=== PATIENT | female | born 1995 ===

== ENCOUNTER → 2020-02-27 13:08 | Outpatient (BNVA) | payer MEDICAID, SELFPAY | PROVIDERS: Visit Provider Advanced Practice Midwife | DX: Z34.90 Encounter for supervision of normal pregnancy, unspecified, unspecified trimester (principal) | CPT/HCPCS: 99212 ==

== ENCOUNTER 2020-03-03 22:42 | Emergency (ER) | payer MEDICAID, SELFPAY ==
[2020-03-03 22:44] VITALS: BP 138/84; PULSE 95; RESP 16; TEMP 36.6; O2SAT 98; BMI 21.2
--- NOTE | 2020-03-03 23:01 | ED.PREGNANCY ---
HPI - General Chief complaint: Abdominal Pain Stated complaint: cramping Time Seen by Provider: 03/03/20 22:48 Source: patient Mode of arrival: ambulatory History of Present Illness HPI Narrative: 24-year-old female, , with last normal menstrual period end of November, however patient is irregular, states of suprapubic cramping radiating to her back x 1-2 days, without vaginal bleeding without dysuria. Denies nausea vomiting. Patient states found not last week no care at this point. Denies chest pain or shortness of breath. Denies dizziness or weakness MD Complaint: abdominal pain Location: pelvis Severity: moderate Quality: Cramping Related Data Home Medications Medication Instructions Recorded Confirmed No Known Home Meds 02/27/20 02/27/20 Allergies Allergy/AdvReac Type Severity Reaction Status Date / Time No Known Allergies Allergy Verified 02/27/20 13:38 Review of Systems Review of Systems: Constitutional : No Weight loss, No Fever, No Chills, No Night Sweats, No Fatigue, No Malaise ENT/Mouth : No Hearing loss, No Ear Pain, No Nasal Congestion, No Sinus Pain, No Hoarseness, No sore throat, No Rhinorrhea, No Swallowing Difficulty Eyes: No Eye Pain, No Swelling, No Redness, No Foreign Body, No Discharge, No Vision Changes Cardiovascular : No Chest Pain, No SOB, No Dyspnea on Exertion, No Orthopnea, No Edema, No Palpitations Respiratory : No Cough, No Sputum, No Wheezing, No Smoke Exposure, No Dyspnea Gastrointestinal : No Nausea, No Vomiting, No Diarrhea, No Constipation, positive abdominal Pain, No Hematochezia, No Melena Genitourinary : no irregular bleeding, No Dysuria, No Urinary Frequency, No Hematuria, No Urinary Incontinence, No Urgency, No Flank Pain, No Urinary Flow Changes, No Hesitancy Musculoskeletal : No joint pain, No Myalgias, No Joint Swelling Skin : No Skin Lesions, No rash Neuro : No Weakness, No Numbness, No Paresthesias, No Loss of Consciousness, No Dizziness, No Headache Psych : No Anxiety/Panic, No Depression, No SI/HI/AH/VH, No Social Issues, Heme/Lymph: No Bruising, No Bleeding,No Lymphadenopathy Endocrine : No Polyuria, No Polydipsia, No Temperature Intolerance [facility] Past Medical History Medical History (Updated 03/04/20 @ 03:01 by Paresh Drummond DO) Irregular menses Family History Family History (Updated 03/03/20 @ 23:03 by Paresh Drummond DO) Other Family history non-contributory Social History Social History Alcohol intake: never Smoking Status: Never smoker Advance Directives: No Advance Directives Information Provided: No Gender identity: female Physical Exam Vital Signs: Vital Signs: Last Vital Signs Temp 97.6 F 03/04/20 02:00 Pulse 79 03/04/20 02:00 Resp 18 03/04/20 02:00 BP 105/69 03/04/20 02:00 Pulse Ox 99 03/04/20 02:00 Body Mass Index 21.2 Appearance: Alert. Oriented X3. No acute distress. Eyes: Pupils equal, round and reactive to light. ENT: Pharynx normal. Neck: Normal inspection. Neck supple. No lymph nodes noted. No crepitus CVS: Normal heart rate and rhythm. Pulses normal. Normal S1 and S2 Respiratory: No respiratory distress. Breath sounds normal. No Wheezing. No rales Abdomen: Soft and mild suprapubic tender. No rigidity. No distention. good BS x4 Skin: Skin warm and dry. Normal skin color. Normal skin turgor. Ob- pelvic exam deferred Extremities: No lower extremity edema. Neurovascular intact to all extremities. No Lacerations. No Rash Neuro: Oriented X 3. No motor deficit. No sensory deficit. Moving all extermities. No slurred speech. Course Course Course Narrative: Patient has been waiting patiently in room in no distress on phone sitting up. However there has been a problem with the lab in which they say they have a computer problem which has prolonged her HCG results. Because of that we we have had to prolong her ultrasound which patient does not want to wait in the emergency department any more. I discussed with the patient of the risk of leaving especially with my differential diagnosis of ectopic and patient understands she needs to return if getting worse. Patient will sign out against medical advice and I did discuss with her she can get worse and can without a definitive diagnosis MDM - OB/Uterine Contractions Lab Data Result diagrams: 03/03/20 23:00 03/03/20 00:07 Labs: Lab Results 11/03/03/20 03/03/20 Range/Units 00:07 23:00 23:48 WBC 6.8 (4.8-10.8) X10*3/uL RBC 3.92 L (4.20-5.50) X10*6/uL Hgb 10.8 L (12.0-16.0) g/dl Hct 31.6 L (37-47) % MCV 80.6 (80-98) fL MCH 27.6 (27.0-33.0) pg MCHC 34.2 (31.0-35.0) g/dl RDW 12.4 (11.0-16.0) % Plt Count 220 (160-400) X10*3/uL MPV 10.3 (9.4-12.3) fL Immature Gran % (Auto) 0.3 (0.0-0.4) % Neut % (Auto) 51.8 (45-73) % Lymph % (Auto) 37.2 (20-40) % [place] % (Auto) 8.5 (2-11) % Eos % (Auto) 1.5 (0-4) % Baso % (Auto) 0.7 (0-2) % Lymph # (Auto) 2.5 (1.2-4.9) X10*3/uL [place] # (Auto) 0.6 (0.1-1.2) X10*3/uL Eos # (Auto) 0.1 (0.0-0.4) X10*3/uL Baso # (Auto) 0.1 (0.0-0.2) X10*3/uL Abs Immat Gran (auto) 0.02 (0.00-0.03) X10*3/uL Absolute Neuts (auto) 3.5 (2.0-8.3) X10*3/uL Absolute Nucleated RBC 0.000 (0.0-0.012) X10*3/uL Nucleated RBC % (auto) 0.0 (0.0-0.2) /100WBC Sodium 137 (135-145) mmol/L Potassium 3.9 (3.3-5.1) mmol/l Chloride 107 (96-108) mmol/L Carbon Dioxide 22 (22-29) mmol/L Anion Gap 12 (12-20) BUN 8 L (9-16) mg/dL Creatinine 0.68 (0.5-1.4) mg/dL Estim Creat Clear Calc 112.0 Estimated GFR > 60 Random Glucose 73 (60-115) mg/dL Calcium 8.5 (8.4-10.2) mg/dL Beta HCG, Quant 1762 mIU/mL Urine Color YELLOW Urine Appearance CLEAR Urine pH 6.0 (5.0-8.0) Ur Specific [place] 1.025 (1.005-1.025) Urine Protein NEG (NEG-TRACE) MG/DL Urine Glucose (UA) NEG (NEG) MG/DL Urine Ketones NEG (NEG) MG/DL Urine Blood NEG (NEG) Urine Nitrite NEG (NEG) Ur Leukocyte Esterase NEG (NEG) Blood Type 03/04/20 Range/Units 00:07 WBC (4.8-10.8) X10*3/uL RBC (4.20-5.50) X10*6/uL Hgb (12.0-16.0) g/dl Hct (37-47) % MCV (80-98) fL MCH (27.0-33.0) pg MCHC (31.0-35.0) g/dl RDW (11.0-16.0) % Plt Count (160-400) X10*3/uL MPV (9.4-12.3) fL Immature Gran % (Auto) (0.0-0.4) % Neut % (Auto) (45-73) % Lymph % (Auto) (20-40) % [place] % (Auto) (2-11) % Eos % (Auto) (0-4) % Baso % (Auto) (0-2) % Lymph # (Auto) (1.2-4.9) X10*3/uL [place] # (Auto) (0.1-1.2) X10*3/uL Eos # (Auto) (0.0-0.4) X10*3/uL Baso # (Auto) (0.0-0.2) X10*3/uL Abs Immat Gran (auto) (0.00-0.03) X10*3/uL Absolute Neuts (auto) (2.0-8.3) X10*3/uL Absolute Nucleated RBC (0.0-0.012) X10*3/uL Nucleated RBC % (auto) (0.0-0.2) /100WBC Sodium (135-145) mmol/L Potassium (3.3-5.1) mmol/l Chloride (96-108) mmol/L Carbon Dioxide (22-29) mmol/L Anion Gap (12-20) BUN (9-16) mg/dL Creatinine (0.5-1.4) mg/dL Estim Creat Clear Calc Estimated GFR Random Glucose (60-115) mg/dL Calcium (8.4-10.2) mg/dL Beta HCG, Quant mIU/mL Urine Color Urine Appearance Urine pH (5.0-8.0) Ur Specific [place] (1.005-1.025) Urine Protein (NEG-TRACE) MG/DL Urine Glucose (UA) (NEG) MG/DL Urine Ketones (NEG) MG/DL Urine Blood (NEG) Urine Nitrite (NEG) Ur Leukocyte Esterase (NEG) Blood Type O Positive Discharge Plan Discharge Clinical Impression: Qualifiers: Weeks of gestation: less than 8 weeks Qualified Code(s): Z3A.01 - Less than 8 weeks gestation of Abdominal pain Qualifiers: Abdominal location: lower abdomen, unspecified Qualified Code(s): R10.30 - Lower abdominal pain, unspecified Patient Disposition: Home, Self-Care Instructions: Ectopic (DC), (ED) Additional Instructions: Thank you for visiting the emergency department today. If your symptoms worsen or do not resolve completely please return to the emergency department immediately or call 911. If you have any questions please call your primary care physician Prescriptions: No Action No Known Home Meds RF: 0 Referrals: [facility] [Provider Group] - 2 days
[2020-03-04] VITALS: BP 101/57; PULSE 90; RESP 16; TEMP 36.3; O2SAT 99
[2020-03-04 00:31] LABS: Basophils Absolute Auto 0.1 X10*3/uL (0.0-0.2); Basophils Percent Auto 0.7 % (0-2); Eosinophils Absolute Auto 0.1 X10*3/uL (0.0-0.4); Eosinophils Percent Auto 1.5 % (0-4); Hematocrit 31.6 % (37-47); Hemoglobin 10.8 g/dl (12.0-16.0); Imm Gran Abs Auto 0.02 X10*3/uL (0.00-0.03); Imm Gran Pct Auto 0.3 % (0.0-0.4); Lymphocytes Absolute Auto 2.5 X10*3/uL (1.2-4.9); Lymphocytes Percent Auto 37.2 % (20-40); MANUAL DIFF FLAG NO; Mean Corpuscular HGB Conc 34.2 g/dl (31.0-35.0); Mean Corpuscular Hemoglobin 27.6 pg (27.0-33.0); Mean Corpuscular Volume 80.6 fL (80-98); Mean Platelet Volume 10.3 fL (9.4-12.3); Monocytes Absolute Auto 0.6 X10*3/uL (0.1-1.2); Monocytes Percent Auto 8.5 % (2-11); Neutrophils Absolute Auto 3.5 X10*3/uL (2.0-8.3); Neutrophils Percent Auto 51.8 % (45-73); Platelet Count 220 X10*3/uL (160-400); Red Blood Count 3.92 X10*6/uL (4.20-5.50); Red Cell Distribution Width 12.4 % (11.0-16.0); White Blood Count 6.8 X10*3/uL (4.8-10.8)
[2020-03-04 00:32] LABS: Glucose Urine UA NEG (NEG); Leukocyte Esterase Urine NEG (NEG); Nitrite Urine NEG (NEG); Specific Gravity - Urine 1.025 (1.005-1.025); Urine Blood NEG (NEG); Urine Ketones NEG (NEG); Urine Protein NEG (NEG-TRACE)
[2020-03-04 00:36] LABS: Appearance Urine CLEAR; Color Urine YELLOW; UACC Culture Trigger NO
[2020-03-04 02:00] VITALS: BP 105/69; PULSE 79; RESP 18; TEMP 36.4; O2SAT 99
[2020-03-04 02:37] LABS: Anion Gap 12 (12-20); Blood Urea Nitrogen 8 mg/dL (9-16); Calcium 8.5 mg/dL (8.4-10.2); Carbon Dioxide 22 mmol/L (22-29); Chloride 107 mmol/L (96-108); Estimated Glomerular Filt Rate > 60; Glucose Random 73 mg/dL (60-115); Potassium 3.9 mmol/l (3.3-5.1); Sodium 137 mmol/L (135-145)
[2020-03-04 02:44] LABS: HCG Quantitative 1762 mIU/mL
== END 2020-03-04 03:05 | disposition home or self-care (01) ==
PROVIDERS: Emergency Provider Emergency Medicine
DX: O26.91 Pregnancy related conditions, unspecified, first trimester (principal); R10.30 Lower abdominal pain, unspecified; Z3A.08 8 weeks gestation of pregnancy
CPT/HCPCS: 36415; 80048; 81003; 84702; 85025; 86900; 86901; 96360; 99283; 99284

== ENCOUNTER 2020-03-05 11:17 | Emergency (ER) | payer MEDICAID, SELFPAY ==
[2020-03-05 12:00] VITALS: BP 104/62; PULSE 81; RESP 18; TEMP 36.7; O2SAT 100
[2020-03-05 12:25] VITALS: BP 102/64; PULSE 81; RESP 18; TEMP 36.7; O2SAT 100; BMI 21.2
--- NOTE | 2020-03-05 12:39 | US_ITS ---
EXAMINATION: US OBSTETRICAL ULTRASOUND CLINICAL INFORMATION: Early . Lower abdominal and pelvic pain and cramping radiating to back. COMPARISON: None. LMP: Uncertain. TECHNIQUE: Ultrasound of the maternal pelvis is performed using transabdominal and transvaginal transducers. Transvaginal imaging is performed due to inadequate visualization transabdominally. M-mode Doppler is also performed. FINDINGS: There is a small intrauterine gestational sac with double decidual sac sign. Average sac dimension is only 0.5 cm corresponding to a of 5 weeks 0 days. No visible yolk sac or embryonic this time. No subchorionic hemorrhage or hematoma. MATERNAL ADNEXA: Both ovaries are visualized. There is normal color flow to both adnexa. No torsion. No pelvic ascites. The right maternal ovary measures 3.3 x 2.9 x 3.0 cm. There is a dominant follicle versus small follicular cysts in the right ovary measuring 2.8 x 2.3 x 2.3 cm. No hypervascularity around the simple cyst. The left maternal ovary measures 2.3 x 1.5 x 2.3 cm. No left adnexal mass. US/US OB transvaginal IMPRESSION: 1. Early intrauterine gestational sac with average sac dimension only 0.5 cm (5 weeks 0 days). 2. No visible yolk sac or embryo at this time. 3. Simple right maternal ovarian cyst 2.8 x 2.3 cm. No maternal pelvic ascites. No torsion.
--- NOTE | 2020-03-05 12:41 | ED.ABDPAIN ---
HPI - Abdominal Pain General Chief Complaint: Abdominal Pain Stated Complaint: abd pain Time Seen by Provider: 03/05/20 12:34 Source: patient Mode of arrival: ambulatory History of Present Illness HPI narrative: 24-year-old female presenting to ED with continued lower abdominal cramping radiating to back x 4 days. LMP end of November. Denies fever, chills, vaginal bleeding, vaginal discharge, dysuria/hematuria, vomiting MD elicited complaint: abdominal pain Related Data Home Medications Medication Instructions Recorded Confirmed No Known Home Meds 02/27/20 02/27/20 Allergies Allergy/AdvReac Type Severity Reaction Status Date / Time No Known Allergies Allergy Verified 02/27/20 13:38 Review of Systems Review of Systems Constitutional: No Fever, No Malaise Gastrointestinal: + Nausea, No Vomiting,+Abdominal pain Genitourinary: No irregular bleeding, No Dysuria, No Urinary Frequency, No Hematuria, No Flank Pain Musculoskeletal: No joint pain, No Myalgias, No Joint Swelling Skin: No Skin Lesions, No rash Yes all other systems are reviewed and are negative Physical Exam Vital Signs: Vital Signs: Last Vital Signs Temp 97.6 F 03/05/20 14:00 Pulse 89 03/05/20 14:00 Resp 18 03/05/20 14:00 BP 105/60 03/05/20 14:00 Pulse Ox 100 03/05/20 12:25 Body Mass Index 21.2 Const: General: cooperative and healthy appearing Orientation/consciousness: patient oriented x3 Limitations: no limitations HENMT: Head: Yes normal to inspection Ears: hearing grossly normal bilaterally General nose exam: Normal external nose present Face and sinus: Yes normal facial exam Eyes: General: appearance normal, both eyes and all related structures EOM: EOMs intact bilaterally Neck: Neck: Yes normal visual inspection Resp: Effort & Inspection: normal respiratory effort GI: Inspection: Yes normal to inspection Palpation (GI): Soft to palpation, Tenderness to palpation present (GI) suprapubicly, no guarding and not rigid : Other: Pelvic exam deferred General: Yes no CVA tenderness Back/Spine/Pelvis: Back: no CVA tenderness Skin: Rashes: no rashes Wounds: no wounds Neuro: General: patient oriented x3 Gait exam (Neuro): Normal gait present Extrem: General: Yes normal to inspection Course Course Course Narrative: -1354--Labs unremarkable, beta quant 2508 (which coincides with ultrasound dates) -1417--ultrasound showing early intrauterine gestation sac with average sac dimension only 0.5 cm. No visible yolk sac or embryo at this time. Simple right ovarian cyst, no ascites or torsion >> labs/imaging results discussed with patient. She reports has follow-up with ultrasound with her OBGYN next week. UA pending. Worrisome signs and symptoms including worsening/persistent pain, vaginal bleeding, or discharge, patient verbalized understanding feel safe for discharge follow-up with Ob - UA negative MDM - Abdominal Pain MDM Narrative Medical decision making narrative: 24-year-old female presenting to ED with lower abdominal cramping radiating to back x 4 days. On exam VSS, NAD/well-appearing, abdomen soft with mild suprapubic TTP. No rebound or guarding. Concern for ectopic vs normal vs ovarian cyst/torsion. Lower concern for TOA Plan: Labs, UA, pelvic ultrasound Lab Data Result diagrams: 03/05/20 12:49 03/05/20 12:49 Labs: Lab Results 03/05/20 03/05/20 03/05/20 Range/Units 12:49 12:49 12:49 WBC 4.6 L (4.8-10.8) X10*3/uL RBC 4.22 (4.20-5.50) X10*6/uL Hgb 11.4 L (12.0-16.0) g/dl Hct 34.3 L (37-47) % MCV 81.3 (80-98) fL MCH 27.0 (27.0-33.0) pg MCHC 33.2 (31.0-35.0) g/dl RDW 12.5 (11.0-16.0) % Plt Count 190 (160-400) X10*3/uL MPV 10.1 (9.4-12.3) fL Immature Gran % (Auto) 0.2 (0.0-0.4) % Neut % (Auto) 48.4 (45-73) % Lymph % (Auto) 39.7 (20-40) % [place] % (Auto) 8.6 (2-11) % Eos % (Auto) 2.2 (0-4) % Baso % (Auto) 0.9 (0-2) % Lymph # (Auto) 1.8 (1.2-4.9) X10*3/uL [place] # (Auto) 0.4 (0.1-1.2) X10*3/uL Eos # (Auto) 0.1 (0.0-0.4) X10*3/uL Baso # (Auto) 0.0 (0.0-0.2) X10*3/uL Abs Immat Gran (auto) 0.01 (0.00-0.03) X10*3/uL Absolute Neuts (auto) 2.2 (2.0-8.3) X10*3/uL Absolute Nucleated RBC 0.000 (0.0-0.012) X10*3/uL Nucleated RBC % (auto) 0.0 (0.0-0.2) /100WBC Hold Blue Top SEE NOTE Sodium 137 (135-145) mmol/L Potassium 3.8 (3.3-5.1) mmol/l Chloride 106 (96-108) mmol/L Carbon Dioxide 25 (22-29) mmol/L Anion Gap 10 L (12-20) BUN 8 L (9-16) mg/dL Creatinine 0.68 (0.5-1.4) mg/dL Estim Creat Clear Calc 112.0 Estimated GFR > 60 Random Glucose 64 (60-115) mg/dL Calcium 8.6 (8.4-10.2) mg/dL Total Bilirubin (0.0-1.0) mg/dL Direct Bilirubin (0.0-0.5) mg/dL AST (5-31) U/L ALT (0-31) U/L Alkaline Phosphatase (39-117) U/L Total Protein (6.5-8.0) g/dL Albumin (3.5-5.0) g/dL Beta HCG, Quant 2508 mIU/mL Urine Color Urine Appearance Urine pH (5.0-8.0) Ur Specific [place] (1.005-1.025) Urine Protein (NEG-TRACE) MG/DL Urine Glucose (UA) (NEG) MG/DL Urine Ketones (NEG) MG/DL Urine Blood (NEG) Urine Nitrite (NEG) Ur Leukocyte Esterase (NEG) 03/05/20 03/05/20 Range/Units 12:49 14:28 WBC (4.8-10.8) X10*3/uL RBC (4.20-5.50) X10*6/uL Hgb (12.0-16.0) g/dl Hct (37-47) % MCV (80-98) fL MCH (27.0-33.0) pg MCHC (31.0-35.0) g/dl RDW (11.0-16.0) % Plt Count (160-400) X10*3/uL MPV (9.4-12.3) fL Immature Gran % (Auto) (0.0-0.4) % Neut % (Auto) (45-73) % Lymph % (Auto) (20-40) % [place] % (Auto) (2-11) % Eos % (Auto) (0-4) % Baso % (Auto) (0-2) % Lymph # (Auto) (1.2-4.9) X10*3/uL [place] # (Auto) (0.1-1.2) X10*3/uL Eos # (Auto) (0.0-0.4) X10*3/uL Baso # (Auto) (0.0-0.2) X10*3/uL Abs Immat Gran (auto) (0.00-0.03) X10*3/uL Absolute Neuts (auto) (2.0-8.3) X10*3/uL Absolute Nucleated RBC (0.0-0.012) X10*3/uL Nucleated RBC % (auto) (0.0-0.2) /100WBC Hold Blue Top Sodium (135-145) mmol/L Potassium (3.3-5.1) mmol/l Chloride (96-108) mmol/L Carbon Dioxide (22-29) mmol/L Anion Gap (12-20) BUN (9-16) mg/dL Creatinine (0.5-1.4) mg/dL Estim Creat Clear Calc Estimated GFR Random Glucose (60-115) mg/dL Calcium (8.4-10.2) mg/dL Total Bilirubin 0.4 (0.0-1.0) mg/dL Direct Bilirubin 0.2 (0.0-0.5) mg/dL AST 18 (5-31) U/L ALT 8 (0-31) U/L Alkaline Phosphatase 56 (39-117) U/L Total Protein 7.3 (6.5-8.0) g/dL Albumin 4.3 (3.5-5.0) g/dL Beta HCG, Quant mIU/mL Urine Color YELLOW Urine Appearance CLEAR Urine pH 6.5 (5.0-8.0) Ur Specific [place] 1.020 (1.005-1.025) Urine Protein NEG (NEG-TRACE) MG/DL Urine Glucose (UA) NEG (NEG) MG/DL Urine Ketones NEG (NEG) MG/DL Urine Blood NEG (NEG) Urine Nitrite NEG (NEG) Ur Leukocyte Esterase NEG (NEG) Discharge Plan Discharge Clinical Impression: Abdominal pain in Qualifiers: Trimester: first trimester Qualified Code(s): O26.891 - Other specified related conditions, first trimester Patient Disposition: Home, Self-Care Instructions: Abdominal Pain in (ED) Additional Instructions: Your blood work was reassuring today in the ED. Ultrasound showed an early gestational sac It is recommended you have a repeat ultrasound in 1 week Follow-up with her OBGYN If her pain persists or worsens, becomes unbearable, he developed vaginal bleeding, discharge, or are unable to eat or drink return to the ED immediately Prescriptions: No Action No Known Home Meds RF: 0 Referrals: Selena Orellana MD [Physician] - 1 week [facility] Past Medical History Attestation statement: The following information was validated with the patient. Medical History (Updated 03/05/20 @ 14:19 by ROMIE Soni) Irregular menses Family History Family History (Updated 03/03/20 @ 23:03 by Paresh Drummond DO) Other Family history non-contributory Social History Social History Alcohol intake: never Smoking Status: Never smoker Use of substances other than those prescribed or required for medical reasons: No Advance Directives: No Advance Directives Information Provided: No Gender identity: female
--- NOTE | 2020-03-05 12:50 | US_ITS ---
EXAMINATION: US OBSTETRICAL ULTRASOUND CLINICAL INFORMATION: Early . Lower abdominal and pelvic pain and cramping radiating to back. COMPARISON: None. LMP: Uncertain. TECHNIQUE: Ultrasound of the maternal pelvis is performed using transabdominal and transvaginal transducers. Transvaginal imaging is performed due to inadequate visualization transabdominally. M-mode Doppler is also performed. FINDINGS: There is a small intrauterine gestational sac with double decidual sac sign. Average sac dimension is only 0.5 cm corresponding to a of 5 weeks 0 days. No visible yolk sac or embryonic this time. No subchorionic hemorrhage or hematoma. MATERNAL ADNEXA: Both ovaries are visualized. There is normal color flow to both adnexa. No torsion. No pelvic ascites. The right maternal ovary measures 3.3 x 2.9 x 3.0 cm. There is a dominant follicle versus small follicular cysts in the right ovary measuring 2.8 x 2.3 x 2.3 cm. No hypervascularity around the simple cyst. The left maternal ovary measures 2.3 x 1.5 x 2.3 cm. No left adnexal mass. US/US OB <= 14 weeks fetus IMPRESSION: 1. Early intrauterine gestational sac with average sac dimension only 0.5 cm (5 weeks 0 days). 2. No visible yolk sac or embryo at this time. 3. Simple right maternal ovarian cyst 2.8 x 2.3 cm. No maternal pelvic ascites. No torsion.
--- NOTE | 2020-03-05 12:55 | PC.NURSE ---
amb to ultrasound steady gait
[2020-03-05 13:02] LABS: Basophils Percent Auto 0.9 % (0-2); Eosinophils Absolute Auto 0.1 X10*3/uL (0.0-0.4); Eosinophils Percent Auto 2.2 % (0-4); Hematocrit 34.3 % (37-47); Hemoglobin 11.4 g/dl (12.0-16.0); Imm Gran Abs Auto 0.01 X10*3/uL (0.00-0.03); Imm Gran Pct Auto 0.2 % (0.0-0.4); Lymphocytes Absolute Auto 1.8 X10*3/uL (1.2-4.9); Lymphocytes Percent Auto 39.7 % (20-40); MANUAL DIFF FLAG NO; Mean Corpuscular HGB Conc 33.2 g/dl (31.0-35.0); Mean Corpuscular Volume 81.3 fL (80-98); Mean Platelet Volume 10.1 fL (9.4-12.3); Monocytes Absolute Auto 0.4 X10*3/uL (0.1-1.2); Monocytes Percent Auto 8.6 % (2-11); Neutrophils Absolute Auto 2.2 X10*3/uL (2.0-8.3); Neutrophils Percent Auto 48.4 % (45-73); Platelet Count 190 X10*3/uL (160-400); Red Blood Count 4.22 X10*6/uL (4.20-5.50); Red Cell Distribution Width 12.5 % (11.0-16.0); White Blood Count 4.6 X10*3/uL (4.8-10.8)
[2020-03-05 13:22] LABS: Anion Gap 10 (12-20); Blood Urea Nitrogen 8 mg/dL (9-16); Calcium 8.6 mg/dL (8.4-10.2); Carbon Dioxide 25 mmol/L (22-29); Chloride 106 mmol/L (96-108); Estimated Glomerular Filt Rate > 60; Glucose Random 64 mg/dL (60-115); Potassium 3.8 mmol/l (3.3-5.1); Sodium 137 mmol/L (135-145)
[2020-03-05 13:23] LABS: Alanine Aminotransferase 8 U/L (0-31); Albumin Level 4.3 g/dL (3.5-5.0); Alkaline Phosphatase 56 U/L (39-117); Aspartate Amino Transferase 18 U/L (5-31); Bilirubin Direct 0.2 mg/dL (0.0-0.5); Bilirubin Total 0.4 mg/dL (0.0-1.0); Total Protein 7.3 g/dL (6.5-8.0)
[2020-03-05 13:30] LABS: HCG Quantitative 2508 mIU/mL
[2020-03-05 14:00] VITALS: BP 105/60; PULSE 89; RESP 18; TEMP 36.4
[2020-03-05 14:38] LABS: Glucose Urine UA NEG (NEG); Leukocyte Esterase Urine NEG (NEG); Nitrite Urine NEG (NEG); PH 6.5 (5.0-8.0); Urine Blood NEG (NEG); Urine Ketones NEG (NEG); Urine Protein NEG (NEG-TRACE)
[2020-03-05 14:41] LABS: Appearance Urine CLEAR; Color Urine YELLOW
== END 2020-03-05 14:59 | disposition home or self-care (01) ==
PROVIDERS: Physician Assistant; Emergency Provider Emergency Medicine Emergency Medical Services
DX: O26.891 Other specified pregnancy related conditions, first trimester (principal); Z3A.00 Weeks of gestation of pregnancy not specified
CPT/HCPCS: 36415; 76801; 76817; 80048; 80076; 81003; 84702; 85025; 99284

== ENCOUNTER 2020-03-12 09:29 | Outpatient (REF) | payer MEDICAID, SELFPAY ==
--- NOTE | 2020-03-12 09:33 | US_ITS ---
EXAMINATION: OBSTETRICAL ULTRASOUND, FIRST TRIMESTER HISTORY: 24-year-old with unknown LMP Viability LMP: Unknown COMPARISON: 03/05/2020 TECHNIQUE: Real time transabdominal imaging with color and M-mode Doppler. Transvaginal ultrasound was performed using an endovaginal probe. FINDINGS: A single, live IUP CRL of 2.3 mm c/w 5.6wks is noted. Heart Rate: 104 beats per minute. Both maternal ovaries are seen and appear normal. GESTATIONAL AGE: 1. GA from LMP: N/A wks 2. GA from AUA: 5.6 wks ESTIMATED DATE OF DELIVERY: 1. MING from LMP: N/A 2. MING from AUA: 11/06/2020 US/US OB transvaginal IMPRESSION: 1. A single live IUP 2. CRL is consistent with 5.6 weeks 3. Low heart rate but can be consistent for this gestational age. A follow-up evaluation in approximately 2 weeks to confirm viability is recommended. Thank you very much for this referral.
--- NOTE | 2020-03-12 09:33 | US_ITS ---
EXAMINATION: OBSTETRICAL ULTRASOUND, FIRST TRIMESTER HISTORY: 24-year-old with unknown LMP Viability LMP: Unknown COMPARISON: 03/05/2020 TECHNIQUE: Real time transabdominal imaging with color and M-mode Doppler. Transvaginal ultrasound was performed using an endovaginal probe. FINDINGS: A single, live IUP CRL of 2.3 mm c/w 5.6wks is noted. Heart Rate: 104 beats per minute. Both maternal ovaries are seen and appear normal. GESTATIONAL AGE: 1. GA from LMP: N/A wks 2. GA from AUA: 5.6 wks ESTIMATED DATE OF DELIVERY: 1. MING from LMP: N/A 2. MING from AUA: 11/06/2020 US/US OB <= 14 weeks fetus IMPRESSION: 1. A single live IUP 2. CRL is consistent with 5.6 weeks 3. Low heart rate but can be consistent for this gestational age. A follow-up evaluation in approximately 2 weeks to confirm viability is recommended. Thank you very much for this referral.
== END 2020-03-12 09:30 | disposition home or self-care (01) ==
LOC: HO.US 09:29
PROVIDERS: Visit Provider Advanced Practice Midwife
DX: Z34.91 Encounter for supervision of normal pregnancy, unspecified, first trimester (principal); Z36.87 Encounter for antenatal screening for uncertain dates
CPT/HCPCS: 76801; 76817

== ENCOUNTER 2020-04-08 02:26 | Emergency (ER) | payer MEDICAID, SELFPAY ==
[2020-04-08 02:55] VITALS: BP 113/75; PULSE 88; RESP 16; TEMP 36.8; O2SAT 98; BMI 20.5
[2020-04-08 03:20] LABS: Basophils Percent Auto 0.6 % (0-2); Eosinophils Absolute Auto 0.1 X10*3/uL (0.0-0.4); Hematocrit 32.3 % (37-47); Hemoglobin 11.1 g/dl (12.0-16.0); Imm Gran Abs Auto 0.02 X10*3/uL (0.00-0.03); Imm Gran Pct Auto 0.3 % (0.0-0.4); Lymphocytes Absolute Auto 1.7 X10*3/uL (1.2-4.9); Mean Corpuscular HGB Conc 34.4 g/dl (31.0-35.0); Mean Corpuscular Volume 81.4 fL (80-98); Mean Platelet Volume 10.4 fL (9.4-12.3); Monocytes Absolute Auto 0.5 X10*3/uL (0.1-1.2); Monocytes Percent Auto 6.8 % (2-11); Neutrophils Absolute Auto 4.7 X10*3/uL (2.0-8.3); Neutrophils Percent Auto 67.3 % (45-73); Platelet Count 192 X10*3/uL (160-400); Red Blood Count 3.97 X10*6/uL (4.20-5.50); Red Cell Distribution Width 12.7 % (11.0-16.0)
[2020-04-08 03:23] LABS: MANUAL DIFF FLAG NO
[2020-04-08] MEDS: 0.9 % Sodium Chloride 1,000 ML 999 ML IV (03:30)
[2020-04-08] MEDS: ondansetron HCL 4 MG/2 ML VIAL IVPUSH (03:31)
[2020-04-08 03:46] LABS: Alanine Aminotransferase 8 U/L (0-31); Alanine Aminotransferase 9 U/L (0-31); Albumin Level 4.1 g/dL (3.5-5.0); Albumin Level 4.2 g/dL (3.5-5.0); Alkaline Phosphatase 42 U/L (39-117); Alkaline Phosphatase 44 U/L (39-117); Anion Gap 14 (12-20); Aspartate Amino Transferase 21 U/L (5-31); Aspartate Amino Transferase 23 U/L (5-31); Bilirubin Direct < 0.2 mg/dL (0.0-0.5); Bilirubin Total 0.3 mg/dL (0.0-1.0); Blood Urea Nitrogen 7 mg/dL (9-16); Calcium 8.6 mg/dL (8.4-10.2); Carbon Dioxide 22 mmol/L (22-29); Chloride 103 mmol/L (96-108); Creatinine Clr Calc Pharmacy 126.3; Estimated Glomerular Filt Rate > 60; Glucose Random 92 mg/dL (60-115); Lipase 32 U/L (8-78); Potassium 4.4 mmol/l (3.3-5.1); Sodium 135 mmol/L (135-145); Total Protein 7.2 g/dL (6.5-8.0); Total Protein 7.4 g/dL (6.5-8.0)
[2020-04-08 04:00] VITALS: BP 107/66; PULSE 86; RESP 14; O2SAT 98
--- NOTE | 2020-04-08 04:03 | ED_ITS ---
HPI - Nausea/Vomiting/Diarrhea General Chief complaint: Nausea/Vomiting/Diarrhea Stated complaint: /VOMITING Time Seen by Provider: 04/08/20 03:10 Source: patient Mode of arrival: ambulatory History of Present Illness HPI Narrative: This is a 24-year-old female at approximately 9-10 weeks gestation who presents with onset nausea and vomiting at approximately midnight and states that she noticed it went from yellow to brown to than bright red blood without associated fevers, chills, urinary symptoms. She states that the food that she ate was shared with another person who does not exhibit the same symptoms. Otherwise, she denies any lower abdominal cramping, vaginal bleeding, urinary pain/burning/frequency. She states she has had no further episodes of vomiting here in the emergency department and is currently asymptomatic. Related Data Previous Rx's Medication Instructions Recorded pyridoxine (vitamin B6) 25 mg PO TID PRN #30 tab 04/08/20 Allergies Allergy/AdvReac Type Severity Reaction Status Date / Time No Known Allergies Allergy Verified 02/27/20 13:38 Review of Systems Review of Systems: Pertinent positives and negatives as stated in HPI 10 point review systems is otherwise negative. PMFSH Past Medical History Source: nursing notes reviewed Medical History Irregular menses Family History Family History Other Family history non-contributory Social History Social History Alcohol intake: never Smoking Status: Never smoker Smoked in Last 30 Days: No Use of substances other than those prescribed or required for medical reasons: No Advance Directives: No Gender identity: female Physical Exam Vital Signs: Vital Signs: Last Vital Signs Temp 98.3 F 04/08/20 02:55 Pulse 86 04/08/20 04:00 Resp 14 04/08/20 04:00 BP 107/66 04/08/20 04:00 Pulse Ox 98 04/08/20 04:00 Body Mass Index 20.5 VITAL SIGNS: Reviewed. GENERAL: Well developed, well nourished, in no acute distress. HEAD: Normocephalic/atraumatic, EYES: PERRLA, EOMI intact without pain, no nystagmus/pallor/icterus noted EARS: Ext canals without abnormality, TMs non-bulging and non-erythematous NOSE: Nares patent bilateral OROPHARYNX: no oral lesions noted, posterior pharynx clear and non-erythematous without noted tonsillar enlargement/erythema/exudates NECK: Supple, no adenopathy LUNGS: Normal breath sounds. No adventitious sounds or accessory muscle use. SpO2<98> CARDIOVASCULAR: Regular rate and rhythm without noted murmurs, no JVD or lower extremity edema. ABDOMEN: Soft, non-tender, non-distended with bowel sounds. No rigidity. No guarding. No palpable masses or hernias noted MUSCULOSKELETAL: No tenderness, deformities, or effusions noted on gross inspection. EXTREMITIES: No cyanosis, clubbing or edema. SKIN: Inspection of the skin reveals no rashes, ulcerations, jaundice, pallor, or petechiae. NEUROLOGIC: Alert and oriented x 4. Strength and sensation to light touch were grossly intact x 4. FHR:166 Course Course Course Narrative: This is a 24-year-old female with history and clinical presentation most consistent with nausea and vomiting likely associated with and mild dehydration. Patient had no further episodes of vomiting here in the emergency department making it impossible to confirm any presence of bright red blood. Patient received a L of fluids, GI cocktail as well as antiemetic and on re-evaluation states that she is feeling much better. On review of all investigations there is no evidence of systemic infection and there has been no change in H/H. Patient is neither tachycardic nor hypotensive and chemistry evaluation is without acute findings. Urinalysis and U tox are negative. Patient was informed of all results and findings and was discharged home in stable condition with a medication for related nausea and instructed that should she develop any recurrent bleeding or change in stool color that she should return to the emergency department immediately. She was recommended as follow-up with her OB in the morning. MDM - Nausea/Vomiting/Diarrhea Lab Data Result diagrams: 04/08/20 03:16 04/08/20 03:16 Labs: Lab Results 04/08/20 04/08/20 04/08/20 Range/Units 03:16 03:16 03:16 WBC 7.0 (4.8-10.8) X10*3/uL RBC 3.97 L (4.20-5.50) X10*6/uL Hgb 11.1 L (12.0-16.0) g/dl Hct 32.3 L (37-47) % MCV 81.4 (80-98) fL MCH 28.0 (27.0-33.0) pg MCHC 34.4 (31.0-35.0) g/dl RDW 12.7 (11.0-16.0) % Plt Count 192 (160-400) X10*3/uL MPV 10.4 (9.4-12.3) fL Immature Gran % (Auto) 0.3 (0.0-0.4) % Neut % (Auto) 67.3 (45-73) % Lymph % (Auto) 24.0 (20-40) % [place] % (Auto) 6.8 (2-11) % Eos % (Auto) 1.0 (0-4) % Baso % (Auto) 0.6 (0-2) % Lymph # (Auto) 1.7 (1.2-4.9) X10*3/uL [place] # (Auto) 0.5 (0.1-1.2) X10*3/uL Eos # (Auto) 0.1 (0.0-0.4) X10*3/uL Baso # (Auto) 0.0 (0.0-0.2) X10*3/uL Abs Immat Gran (auto) 0.02 (0.00-0.03) X10*3/uL Absolute Neuts (auto) 4.7 (2.0-8.3) X10*3/uL Absolute Nucleated RBC 0.000 (0.0-0.012) X10*3/uL Nucleated RBC % (auto) 0.0 (0.0-0.2) /100WBC Sodium 135 (135-145) mmol/L Potassium 4.4 (3.3-5.1) mmol/l Chloride 103 (96-108) mmol/L Carbon Dioxide 22 (22-29) mmol/L Anion Gap 14 (12-20) BUN 7 L (9-16) mg/dL Creatinine 0.60 (0.5-1.4) mg/dL Estim Creat Clear Calc 126.3 Estimated GFR > 60 Random Glucose 92 D (60-115) mg/dL Calcium 8.6 (8.4-10.2) mg/dL Total Bilirubin 0.3 0.3 (0.0-1.0) mg/dL Direct Bilirubin < 0.2 (0.0-0.5) mg/dL AST 21 23 (5-31) U/L ALT 8 9 (0-31) U/L Alkaline Phosphatase 44 D 42 (39-117) U/L Total Protein 7.2 7.4 (6.5-8.0) g/dL Albumin 4.1 4.2 (3.5-5.0) g/dL Lipase 32 (8-78) U/L Beta HCG, Quant 286617 mIU/mL Urine Color Urine Appearance Urine pH (5.0-8.0) Ur Specific [place] (1.005-1.025) Urine Protein (NEG-TRACE) MG/DL Urine Glucose (UA) (NEG) MG/DL Urine Ketones (NEG) MG/DL Urine Blood (NEG) Urine Nitrite (NEG) Ur Leukocyte Esterase (NEG) Urine Opiates Screen (Not Detect) Ur Barbiturates Screen (Not Detect) Ur Phencyclidine Scrn (Not Detect) Ur Amphetamines Screen (Not Detect) U Benzodiazepines Scrn (Not Detect) Urine Cocaine Screen (Not Detect) U Marijuana (THC) Screen (Not Detect) 04/08/20 04/08/20 Range/Units 04:14 04:14 WBC (4.8-10.8) X10*3/uL RBC (4.20-5.50) X10*6/uL Hgb (12.0-16.0) g/dl Hct (37-47) % MCV (80-98) fL MCH (27.0-33.0) pg MCHC (31.0-35.0) g/dl RDW (11.0-16.0) % Plt Count (160-400) X10*3/uL MPV (9.4-12.3) fL Immature Gran % (Auto) (0.0-0.4) % Neut % (Auto) (45-73) % Lymph % (Auto) (20-40) % [place] % (Auto) (2-11) % Eos % (Auto) (0-4) % Baso % (Auto) (0-2) % Lymph # (Auto) (1.2-4.9) X10*3/uL [place] # (Auto) (0.1-1.2) X10*3/uL Eos # (Auto) (0.0-0.4) X10*3/uL Baso # (Auto) (0.0-0.2) X10*3/uL Abs Immat Gran (auto) (0.00-0.03) X10*3/uL Absolute Neuts (auto) (2.0-8.3) X10*3/uL Absolute Nucleated RBC (0.0-0.012) X10*3/uL Nucleated RBC % (auto) (0.0-0.2) /100WBC Sodium (135-145) mmol/L Potassium (3.3-5.1) mmol/l Chloride (96-108) mmol/L Carbon Dioxide (22-29) mmol/L Anion Gap (12-20) BUN (9-16) mg/dL Creatinine (0.5-1.4) mg/dL Estim Creat Clear Calc Estimated GFR Random Glucose (60-115) mg/dL Calcium (8.4-10.2) mg/dL Total Bilirubin (0.0-1.0) mg/dL Direct Bilirubin (0.0-0.5) mg/dL AST (5-31) U/L ALT (0-31) U/L Alkaline Phosphatase (39-117) U/L Total Protein (6.5-8.0) g/dL Albumin (3.5-5.0) g/dL Lipase (8-78) U/L Beta HCG, Quant mIU/mL Urine Color YELLOW Urine Appearance CLEAR Urine pH 7.0 (5.0-8.0) Ur Specific [place] 1.015 (1.005-1.025) Urine Protein NEG (NEG-TRACE) MG/DL Urine Glucose (UA) NEG (NEG) MG/DL Urine Ketones NEG (NEG) MG/DL Urine Blood NEG (NEG) Urine Nitrite NEG (NEG) Ur Leukocyte Esterase NEG (NEG) Urine Opiates Screen Not Detected (Not Detect) Ur Barbiturates Screen Not Detected (Not Detect) Ur Phencyclidine Scrn Not Detected (Not Detect) Ur Amphetamines Screen Not Detected (Not Detect) U Benzodiazepines Scrn Not Detected (Not Detect) Urine Cocaine Screen Not Detected (Not Detect) U Marijuana (THC) Screen Not Detected (Not Detect) Discharge Plan Discharge Clinical Impression: Nausea and vomiting during Patient Disposition: Home, Self-Care Instructions: Nausea and Vomiting in (ED) Additional Instructions: Increase fluid hydration especially with water. Please do not hesitate to return to this emergency department should you experience similar symptoms again. Please follow-up with your assemblies and installations inspector by calling the office today. Prescriptions: New pyridoxine (vitamin B6) 25 mg tablet 25 mg PO TID PRN (Reason: nausea and vomiting) Qty: 30 RF: 0 Referrals: Physician,None [Primary Care Provider] - 2 days
[2020-04-08] MEDS: Lidocaine HCl Viscous 2 % 15 ML SOLUTION 10 ML MUCOUS MEM (04:12)
[2020-04-08] MEDS: Magnesium Hydrox/Alum Hydrox 30 ML ORAL.SUSP PO (04:12)
[2020-04-08 04:28] LABS: Glucose Urine UA NEG (NEG); Leukocyte Esterase Urine NEG (NEG); Nitrite Urine NEG (NEG); Specific Gravity - Urine 1.015 (1.005-1.025); Urine Blood NEG (NEG); Urine Ketones NEG (NEG); Urine Protein NEG (NEG-TRACE)
[2020-04-08 04:29] LABS: Color Urine YELLOW
[2020-04-08 04:30] LABS: Appearance Urine CLEAR
[2020-04-08 05:02] LABS: Amphetamine Screen Urine Not Detected (Not Detect); Barbiturates, Urine Not Detected (Not Detect); Benzodiazepines Screen Urine Not Detected (Not Detect); Cannabinoid Screen Urine Not Detected (Not Detect); Cocaine Screen Urine Not Detected (Not Detect); Opiate Screen Urine Not Detected (Not Detect); Phencyclidine Screen Urine Not Detected (Not Detect)
== END 2020-04-08 05:41 | disposition home or self-care (01) ==
PROVIDERS: Emergency Provider Student in an Organized Health Care Education/Training Program
DX: O21.0 Mild hyperemesis gravidarum (principal); Z3A.09 9 weeks gestation of pregnancy
CPT/HCPCS: 36415; 80053; 80076; 80307; 81003; 82248; 83690; 84702; 85025; 96361; 96374; 99284; J2405

== ENCOUNTER → 2020-04-29 14:01 | Outpatient (BNVA) | payer MEDICAID, SELFPAY | PROVIDERS: Visit Provider Advanced Practice Midwife | DX: Z13.89 Encounter for screening for other disorder (principal) | CPT/HCPCS: 99212 ==

== ENCOUNTER 2020-05-18 13:17 | Outpatient (REF) | payer MEDICAID, SELFPAY ==
[2020-05-18 14:09] LABS: MANUAL DIFF FLAG NO
[2020-05-18 14:14] LABS: Basophils Absolute Auto 0.1 X10*3/uL (0.0-0.2); Basophils Percent Auto 0.6 % (0-2); Eosinophils Absolute Auto 0.1 X10*3/uL (0.0-0.4); Eosinophils Percent Auto 1.4 % (0-4); Hematocrit 32.5 % (37-47); Hemoglobin 10.8 g/dl (12.0-16.0); Imm Gran Abs Auto 0.05 X10*3/uL (0.00-0.03); Imm Gran Pct Auto 0.6 % (0.0-0.4); Lymphocytes Absolute Auto 1.4 X10*3/uL (1.2-4.9); Lymphocytes Percent Auto 17.4 % (20-40); Mean Corpuscular HGB Conc 33.2 g/dl (31.0-35.0); Mean Corpuscular Hemoglobin 27.8 pg (27.0-33.0); Mean Corpuscular Volume 83.5 fL (80-98); Mean Platelet Volume 10.8 fL (9.4-12.3); Monocytes Absolute Auto 0.4 X10*3/uL (0.1-1.2); Monocytes Percent Auto 5.2 % (2-11); Neutrophils Percent Auto 74.8 % (45-73); Platelet Count 182 X10*3/uL (160-400); Red Blood Count 3.89 X10*6/uL (4.20-5.50); Red Cell Distribution Width 13.5 % (11.0-16.0)
[2020-05-18 14:35] LABS: Amphetamine Screen Urine Not Detected (Not Detect); Barbiturates, Urine Not Detected (Not Detect); Benzodiazepines Screen Urine Not Detected (Not Detect); Cannabinoid Screen Urine Not Detected (Not Detect); Cocaine Screen Urine Not Detected (Not Detect); Opiate Screen Urine Not Detected (Not Detect); Phencyclidine Screen Urine Not Detected (Not Detect)
[2020-05-19 05:12] LABS: Rubella IgG Antibody <0.90 Index; Varicella IgG Antibody <135.00 index
[2020-05-19 08:16] LABS: HIV AB/AG Nonreactive (Nonreactive); HIV Num 1 0.09 S/CO (0.00-0.99); ~Hepatitis C Antibody Nonreactive (Nonreactive)
[2020-05-19 08:28] LABS: Syphilis Screen Nonreactive (Nonreactive)
[2020-05-19 08:31] LABS: HBsAGNum1 0.13 S/CO (0.00-0.99); Hepatitis B Surface Antigen Negative (Negative)
== END 2020-05-18 13:18 | disposition home or self-care (01) ==
LOC: HO.LAB 13:17
PROVIDERS: Visit Provider Advanced Practice Midwife
DX: Z34.90 Encounter for supervision of normal pregnancy, unspecified, unspecified trimester (principal); Z3A.01 Less than 8 weeks gestation of pregnancy
CPT/HCPCS: 80307; 85025; 86762; 86780; 86787; 86803; 86850; 86900; 86901; 87086; 87340; 87389

== ENCOUNTER 2020-05-19 09:29 | Outpatient (REF) | payer MEDICAID, SELFPAY ==
[2020-05-20 12:47] LABS: C. trachomatis RNA TMA NOT DETECTED (NOT DETECTED); N. gonorrhoeae RNA TMA NOT DETECTED (NOT DETECTED)
== END 2020-05-19 09:30 | disposition home or self-care (01) ==
LOC: HO.LAB 09:29
PROVIDERS: Visit Provider Advanced Practice Midwife
DX: O26.892 Other specified pregnancy related conditions, second trimester (principal); R42 Dizziness and giddiness; Z3A.15 15 weeks gestation of pregnancy
CPT/HCPCS: 36415; 81003; 87491; 87591; 88142; 90686; 99212

== ENCOUNTER 2020-06-11 10:47 | Outpatient (REF) | payer MEDICAID, SELFPAY ==
--- NOTE | ~2020-06-11 | US_ITS ---
EXAMINATION: US OBSTETRICAL CLINICAL INFORMATION: 24-year-old at 18.6 weeks of gestation Screening for anomaly COMPARISON: 03/12/2020 TECHNIQUE: Real-time transabdominal ultrasound was performed using C1-5 megahertz transducer. FINDINGS: A single, active, fetus is seen in vertex presentation. The placenta is posterior without previa, and the amniotic fluid volume is wnl. MEASUREMENTS: 1. Biparietal Diameter: 4.4 cm; 19.3 wks 2. Occipital Frontal Diameter: 5.7 cm 3. Head Circumference: 16.7 cm; 19.3 wks 4. Abdominal Circumference: 14.7 cm; 20.1 wks 5. Femur Length: 2.94 cm; 19.1 wks 6. Humerus Length: 2.9 cm; 19.3 wks 7. Tibia Length: 2.3 cm; 18.6 wks 8. Ulna Length: 2.43 cm; 18.5 wks 9. Lateral ventricle: 0.42 cm 10. Cerebellum: 1.96 cm; 20.1 wks 11. Cisterna Magna: 0.35 cm 12. Nuchal Fold: 4.3 mm 13. Heart Rate: 156 beats per minute Rt ovary: normal Lt ovary: normal Cervical length 4.5 cm on T/A. GESTATIONAL AGE: 1. Established GA: 18.6 wks 2. GA from [facility]: 19.4 wks ESTIMATED DATE OF DELIVERY: 1. Established MING: 11/06/2020 2. MING from [facility]: 11/01/2020 ANATOMY: The visualized anatomy includes but not limited to: 1. Cranium: Normal 2. Intracranial anatomy: cavum septum pellucidi, lateral ventricles, choroid plexus, cerebellum, posterior fossa, third and fourth ventricles. 3. face: orbits, lip/palate, profile, nasal bone 4. Heart: four-chamber view of the heart, ventricular septum, foramen ovale, pulmonary vein, left and right outflow tracts, three-vessel view, 3 vessel trachea view, aortic and ductal arches, situs.. 5. Diaphragm: Normal 6. Abdominal wall: Normal 7. Cord Insertion: Normal 8. Spine: Cervical, thoracic, lumbar, sacral. 9. Stomach: Normal size and shape 10. Right Kidney: Normal 11. Left Kidney: Normal 12. 3 vessel cord: Normal 13. Upper extremity: Open hands, fifth digit. 14. Lower extremity: Tibia, fibula, bilateral feet. 15. Bladder: Normal 16. Genitalia: Male, patient aware US/US OB /maternal detail IMPRESSION: 1. Single, living, intrauterine with appropriate biometry. 2. Normal survey DISCUSSION: I reviewed today's ultrasound findings. We discussed the limitations of ultrasound in diagnosing aneuploidy and other congenital abnormalities. I reviewed the differences between screening test and diagnostic test. Amniocentesis was discussed and declined. She was informed that the baseline incidence of congenital abnormalities is approximately 3-5%. Not all these conditions are diagnosable in utero. RECOMMENDATIONS: 1. f/u PRN Thank you for allowing me to participate in her care. Total time 20 minutes. The time spent was devoted to counseling the patient about the disease and diagnosis, coordinating care including reviewing her records, pertinent lab data and studies, as well as discussing diagnostic evaluation and workup, plan therapeutic interventions and future disposition of care. This includes any additional research needed to obtain further information in formulating the plan of care of this patient. This note was generated with a voice recognition program. Please excuse any errors which may have been overlooked during my review of this note. Sometimes these errors may affect the content or meaning of a given sentence.
== END 2020-06-11 10:48 | disposition home or self-care (01) ==
LOC: HO.US 10:47
PROVIDERS: Visit Provider Advanced Practice Midwife
DX: Z34.90 Encounter for supervision of normal pregnancy, unspecified, unspecified trimester (principal); Z36.3 Encounter for antenatal screening for malformations
CPT/HCPCS: 76811

== ENCOUNTER → 2020-06-16 11:22 | Outpatient (BNVA) | payer MEDICAID, SELFPAY | PROVIDERS: Visit Provider Advanced Practice Midwife | DX: Z13.89 Encounter for screening for other disorder (principal) | CPT/HCPCS: 99212 ==

== ENCOUNTER 2023-01-21 20:23 | Emergency (ER) | payer MEDICAID, SELFPAY ==
--- NOTE | ~2023-01-21 | US_ITS ---
EXAMINATION: ULTRASOUND PELVIC, COMPLETE CLINICAL INFORMATION: 7 week . Vaginal bleeding. Beta-hCG 8515. COMPARISON: None. TECHNIQUE: Transvaginal: Used to better visualize pelvic structures Transabdominal: Not adequate for visualization Spectral Doppler and color Doppler exam was utilized. LMP: 12/02/2022. Gestational age by LMP 7 weeks 1 day. MING September 08, 2023 FINDINGS: UTERUS: There is an ovoid heterogeneous complex structure at the fundus of the uterus measuring 2.5 x 1.0 x 1.9 cm. Average diameter 1.8 cm consistent with 6 weeks 5 days. There is a small area of vascularity on color Doppler exam at the margin of this structure. This could be retained products of conception versus hemorrhagic fluid. A mass or polyp is less likely. Endometrial thickness 1.5 cm. Uterus measures 9.2 x 4.8 x 7 cm. ADNEXA: Ovarian vascularity:Doppler demonstrates both arterial and venous vascular flow in the right and left ovary. No evidence of ovarian torsion. Right Ovary: Corpus luteum cyst right ovary measuring 2.1 cm. The right ovary measures 3.6 x 2.5 x 2.2 cm. Left Ovary: 2.7 x 1.3 x 2 cm Cul-de-sac: No Fluid US/US OB pelvic and transvaginal IMPRESSION: 1. No intrauterine gestation. Ectopic cannot be therefore excluded. Consider short-term follow-up ultrasound and correlation with serial beta-hCG levels. 2. Heterogeneous ovoid area with small region of peripheral vascularity in the fundus of uterus. Question retained products of conception versus hemorrhagic fluid. This critical result was discussed with on 01/21/2023, 11:10 PM and it was ascertained that the content and urgency of the report was understood at the time of direct communication.
[2023-01-21 20:27] VITALS: BP 127/75; PULSE 89; RESP 16; TEMP 36.9; O2SAT 100; BMI 25.4
--- NOTE | 2023-01-21 20:34 | ED.GENADULT ---
HPI - General Adult General Chief complaint: Vaginal Bleeding Stated complaint: Vaginal bleeding/7 wks preg Time Seen by Provider: 01/21/23 23:28 Source: patient Mode of arrival: ambulatory Limitations: no limitations History of Present Illness HPI narrative: 27-year-old female , 7 weeks preg with LMP 12/02/2022, followed by OBGYN at [facility], she had an ultrasound at 5 weeks which showed a gestational sac who presents to emergency department for evaluation lower abdominal pain and vaginal bleeding x2 days. Patient states that the bleeding was greater than her menstrual bleeding she states that she was soaking through in had every 2-3 hours however the bleeding has seem to slow down and subside. She states that she is having moderate to severe cramping in her lower abdomen and has had nausea x2 weeks with occasional vomiting. She denied fever, chills, lightheadedness or dizziness. Patient is a , she has 2 children and had 1 therapeutic . Related Data Home Medications Medication Instructions Recorded Confirmed prenat.vits,larry,[id number] 1 tab PO DAILY 06/16/20 Previous Rx's Medication Instructions Recorded pyridoxine (vitamin B6) 25 mg 25 mg PO TID PRN nausea and 04/08/20 tablet vomiting #30 tabs pyridoxine (vitamin B6) 25 mg 25 mg PO TID 30 days #90 tabs 04/20/20 tablet vitamin with calcium 1 tab PO BEDTIME #30 tabs 06/16/20 no.72-iron 27 mg-folic acid 1 mg tablet ( Vitamins Plus Low Iron) oxycodone 5 mg tablet 5 mg PO Q4H PRN pain #10 tabs 01/21/23 Allergies Allergy/AdvReac Type Severity Reaction Status Date / Time No Known Allergies Allergy Verified 06/16/20 11:23 Review of Systems Review of Systems: Yes all other systems are reviewed and are negative [facility] Past Medical History [facility] Narrative: Past medical history: . Social history: She denies tobacco use, she occasionally drinks alcohol. She denies drug use. Medical History Irregular menses Family History Family History Mother Hx of essential hypertension Father No problems noted. Maternal Grandmother Hx of essential hypertension Paternal Grandmother No problems noted. Other Family history non-contributory Social History Social History Household Members: Significant Other and Children Alcohol intake: current Alcohol intake frequency: holidays/special occasions only Smoked in Last 30 Days: No Use of substances other than those prescribed or required for medical reasons: No Advance Directives: No Advance Directives Information Provided: Yes Patient : Yes Gender identity: Female Physical Exam ED Vital Signs: Vital Signs - 24 hr 01/21/23 20:27 01/21/23 23:27 Temperature 98.5 F 98.2 F Pulse Rate 89 84 Respiratory Rate 16 15 Blood Pressure 127/75 116/79 Pulse Oximetry 100 95 Oxygen Delivery Method Room Air Room Air BMI result Body Mass Index 25.4 Vital signs were normal Exam General: Awake, alert in no distress Head: Normocephalic, atraumatic EENT: PERRL, Lids normal, sclera normal, conjunctiva normal, nose normal , ears normal, throat without erythema or exudates Neck: Supple, no adenopathy, trachea midline and nontender Lung: breath sounds symmetric, no wheezing, rales or rhonchi Heart: regular rate and rhythm, normal S1, S2 no murmurs or rubs Abdomen: soft, lower abdominal tenderness, no repeat, nondistended, normal bowel sounds Back: no vertebral tenderness, no CVAT Extremities: no deformities, moves all extremities symmetrically Neuro: Awake, alert, oriented, normal speech Psych: Pleasant, cooperative Course Course Course Narrative: RME: 27 yold female 7 weeks presents to the with vaginal bleeeding. labs and ultrasound ordered Medical Decision Making Medical Decision Making MDM Narrative: 27-year-old female -2 children, 1 therapeutic , 7 weeks followed at [facility], she had ultrasound of 5 weeks which revealed gestational sac who presents emergency department for evaluation of 2 days of vaginal bleeding and lower abdominal cramping. Vaginal bleeding was greater than her menstrual bleeding and she was soaking through 1 pad every 2-3 hours but her bleeding has diminished. Patient had nausea for 2 weeks and intermittent vomiting. She had no fever or chills. Following evaluation was ordered: CBC, CMP, quantitative beta-hCG. 23:59 Patient's laboratory evaluation revealed mild anemia with an H&H of 11.5 and 34.1. Patient had a quantitative beta-hCG 8075. Patient's blood type is O-positive. Ultrasound did not reveal any evidence for topic , there may be retrained products of conception versus hemorrhagic fluid noted by the radiologis on the ultrasound. Patient's presentation findings are consistent with a miscarriage and I did discuss this with her. Patient was advised to take Tylenol and ibuprofen for pain and for pain not relieved by these medications she was prescribed ibuprofen. I did emphasize importance of following up with her OBGYN to make sure that there are no retained products of conception and that she completes the miscarriage. She was given a work note, printed and verbal instructions on miscarriage and discharged home Differential Diagnosis Differential Diagnoses: The differential diagnosis associated with the presentation includes Differential diagnosis includes was not limited to complete miscarriage, incomplete miscarriage, ectopic , bleeding in Admission/Observation Consideration of admission/observation: Escalation of care including admission/observation considered Lab Data [facility] Lab Attestation statement: I reviewed the patient's lab results. Please see [facility] for my discussion 01/21/23 20:41 01/21/23 20:41 Labs: Lab Results 01/21/23 Range/Units 20:41 WBC 8.3 (4.8-10.8) X10*3/uL RBC 4.21 (4.20-5.50) X10*6/uL Hgb 11.5 L (12.0-16.0) g/dl Hct 34.1 L (37.0-47.0) % MCV 81.0 (80.0-98.0) fL MCH 27.3 (27.0-33.0) pg MCHC 33.7 (31.0-35.0) g/dl RDW 13.3 (11.0-16.0) % Plt Count 241 (160-400) X10*3/uL MPV 9.7 (9.4-12.3) fL Immature Gran % (Auto) 0.1 (0.0-0.4) % Neut % (Auto) 64.2 (45-73) % Lymph % (Auto) 25.8 (20-40) % [place] % (Auto) 7.0 (2-11) % Eos % (Auto) 2.3 (0-4) % Baso % (Auto) 0.6 (0-2) % Lymph # (Auto) 2.2 (1.2-4.9) X10*3/uL [place] # (Auto) 0.6 (0.1-1.2) X10*3/uL Eos # (Auto) 0.2 (0.0-0.4) X10*3/uL Baso # (Auto) 0.1 (0.0-0.2) X10*3/uL Abs Immat Gran (auto) 0.01 (0.00-0.03) X10*3/uL Absolute Neuts (auto) 5.4 (2.0-8.3) x10*3/uL Absolute Nucleated RBC 0.000 (0.0-0.012) X10*3/uL Nucleated RBC % (auto) 0.0 (0.0-0.2) /100WBC Smear Tech's Comments VERIFIED Sodium 141 (135-145) mmol/L Potassium 3.7 (3.3-5.1) mmol/L Chloride 109 H (96-108) mmol/L Carbon Dioxide 22 (22-29) mmol/L Anion Gap 14 (12-20) BUN 7 L (9-16) mg/dL Creatinine 0.78 (0.5-1.4) mg/dL Estim Creat Clear Calc 103.7 Estimated GFR > 60 Random Glucose 90 (60-115) mg/dL Calcium 8.9 (8.4-10.2) mg/dL Total Bilirubin 0.3 (0.0-1.0) mg/dL AST 16 (5-31) U/L ALT 8 (0-31) U/L Alkaline Phosphatase 57 (39-117) U/L Total Protein 7.6 (6.5-8.0) g/dL Albumin 4.1 (3.5-5.0) g/dL Beta HCG, Quant 8515 mIU/mL Blood Type O Positive Discharge Plan Discharge Clinical Impression: Miscarriage Patient Disposition: Home, Self-Care Instructions: Miscarriage (ED) Additional Instructions: Your blood work revealed mild anemia. Your blood type is O-positive. Your quantitative beta-hCG was 8575. Your doctor may want to follow this test until it goes down to 0. Your doctor can also compare this number to the previous numbers. The radiologist did not see a gestational sac on ultrasound at this time. Given given the fact that you had a gestational sac on your previous ultrasound, the cramping and the amount of bleeding that you experienced, I believe that you had a miscarriage. It is important that you follow-up with your retail director for re-evaluation within 1 week. Call their office on Sunday morning to schedule follow-up appointment. Follow the miscarriage printed instructions Take ibuprofen 200 mg pills, 2 pills every 6 hours as needed for pain. Take Tylenol (acetaminophen) 500 mg pills, 2 pills every 6 hours as needed for pain. For pain not relieved by ibuprofen or Tylenol take oxycodone 5 mg pills, 1 pill every 4 hours as needed for pain. Do not drive or work while taking this medication since they can cause sleepiness. Oxycodone is a narcotic medication that can be addicting. If you are concerned about addiction you can ask the pharmacist for less pills or do not get this prescription filled. Follow-up with your doctor in 2 days. Please return to the emergency department if your symptoms get worse or if you develop any symptoms that are concerning to you. Please see the work note. Here is the radiology ultrasound report Please show this to your retail director US OB pelvic and transvaginal IMPRESSION: 1. No intrauterine gestation. Ectopic cannot be therefore excluded. Consider short-term follow-up ultrasound and correlation with serial beta-hCG levels. 2. Heterogeneous ovoid area with small region of peripheral vascularity in the fundus of uterus. Question retained products of conception versus hemorrhagic fluid. This critical result was discussed with on 01/21/2023, 11:10 PM and it was ascertained that the content and urgency of the report was understood at the time of direct communication. Dictated By: Abdirahman Nelson MD Prescriptions: New oxycodone 5 mg tablet 5 mg PO Q4H PRN (Reason: pain) Qty: 10 0RF Rx Instructions: Patient may request partial fill; Partial Fill upon patient request. No Action pyridoxine (vitamin B6) 25 mg tablet 25 mg PO TID 30 Days Qty: 90 0RF pyridoxine (vitamin B6) 25 mg tablet 25 mg PO TID PRN (Reason: nausea and vomiting) Qty: 30 0RF prenat.vits,larry,[id number] Tablet 1 tab PO DAILY Vitamin Plus Low Iron 27 mg iron- 1 mg tablet 1 tab PO BEDTIME Qty: 30 11RF Rx Instructions: give with food (meal/snack) Stand Alone Forms: Work/School Release Interventions: ED Discharge Assessment Last Done: 01/22/23 00:29 Discharge Date/Time: 01/22/23 00:10
[2023-01-21 20:47] LABS: Basophils Absolute Auto 0.1 X10*3/uL (0.0-0.2); Basophils Percent Auto 0.6 % (0-2); Eosinophils Absolute Auto 0.2 X10*3/uL (0.0-0.4); Eosinophils Percent Auto 2.3 % (0-4); Hematocrit 34.1 % (37.0-47.0); Hemoglobin 11.5 g/dl (12.0-16.0); Imm Gran Abs Auto 0.01 X10*3/uL (0.00-0.03); Imm Gran Pct Auto 0.1 % (0.0-0.4); Lymphocytes Absolute Auto 2.2 X10*3/uL (1.2-4.9); Lymphocytes Percent Auto 25.8 % (20-40); MANUAL DIFF FLAG SCAN; Mean Corpuscular HGB Conc 33.7 g/dl (31.0-35.0); Mean Corpuscular Hemoglobin 27.3 pg (27.0-33.0); Mean Platelet Volume 9.7 fL (9.4-12.3); Monocytes Absolute Auto 0.6 X10*3/uL (0.1-1.2); Neutrophils Absolute Auto 5.4 x10*3/uL (2.0-8.3); Neutrophils Percent Auto 64.2 % (45-73); Platelet Count 241 X10*3/uL (160-400); Red Blood Count 4.21 X10*6/uL (4.20-5.50); Red Cell Distribution Width 13.3 % (11.0-16.0); SCAN SMEAR FLAG 1; White Blood Count 8.3 X10*3/uL (4.8-10.8)
[2023-01-21 21:05] LABS: SLIDE REVIEW VERIFIED
[2023-01-21 21:08] LABS: Alanine Aminotransferase 8 U/L (0-31); Albumin Level 4.1 g/dL (3.5-5.0); Alkaline Phosphatase 57 U/L (39-117); Anion Gap 14 (12-20); Aspartate Amino Transferase 16 U/L (5-31); Bilirubin Total 0.3 mg/dL (0.0-1.0); Blood Urea Nitrogen 7 mg/dL (9-16); Calcium 8.9 mg/dL (8.4-10.2); Carbon Dioxide 22 mmol/L (22-29); Chloride 109 mmol/L (96-108); Creatinine Clr Calc Pharmacy 103.7; Estimated Glomerular Filt Rate > 60; Glucose Random 90 mg/dL (60-115); HCG Quantitative 8515 mIU/mL; Potassium 3.7 mmol/L (3.3-5.1); Sodium 141 mmol/L (135-145); Total Protein 7.6 g/dL (6.5-8.0)
[2023-01-21 23:27] VITALS: BP 116/79; PULSE 84; RESP 15; TEMP 36.8; O2SAT 95
--- OUTSIDE RECORDS SUMMARY | 2023-01-21 23:52 | XMS_ITS | Continuity of Care Document ---
Author Name Unknown Organization [facility] Address [address] [place] [address]- Care Team Providers Care Billboard Poster Helper Name Role Phone Kevan Saucedo MD Primary Care Physician [place] [facility] [place]20/20 [facility] [address] [place] [address]- Attending Physician: Quynh Esteban MD Allergies, Adverse Reactions, Alerts Substance Reaction Severity Status NKA Active Immunizations Given and Recorded Vaccine Date Status Refusal Reason tetanus/diphtheria/pertussis, acel(Tdap) 1 08/18/20 Given Influenza Virus Vaccine (oldterm) 05/10/20 Recorde d 1Result Comment: Handled getting vaccine well Medications acetaminophen-dextromethorphan 160 mg-5 mg/5 mL oral liquid 10 mL, By Mouth, Every 4 hours, # 120 mL, 0 Refills, Maintenance, 10/09/20 12:19:00 EDT, Liquid, [id number], Partial fill upon patient request if the prescription is for a schedule II opioid drug., 10 mL By Mouth Every 4 hours, 163, cm, ... Start Date: 10/09/20 Status: Ordered ferrous gluconate 240 mg oral tablet 1 tablet = 240 mg, By Mouth, Daily, # 90 tablet, 1 Refills, Maintenance, 08/20/20 9:19:00 EDT, [id number], Partial fill upon patient request if the prescription is for a schedule II opioid drug., 163, cm, 08/18/20 10:31:00 EDT, Height, 70.2, k... Start Date: 08/20/20 Stop Date: 02/16/21 Status: Ordered Multivitamins By Mouth, Daily, 0 Refills, Maintenance, 06/24/20 14:48:00 EDT, Partial fill upon patient request if the prescription is for a schedule II opioid drug. Start Date: 06/24/20 Status: Ordered Unisom = 25 mg, By Mouth, Daily, 0 Refills, Maintenance, 06/24/20 14:47:00 EDT, Partial fill upon patient request if the prescription is for a schedule II opioid drug. Start Date: 06/24/20 Status: Ordered Vitamin B6 Daily, 0 Refills, Maintenance, 06/24/20 14:47:00 EDT, Partial fill upon patient request if the prescription is for a schedule II opioid drug. Start Date: 06/24/20 Status: Ordered Problem List Condition Effective Dates Status Health Status Inform ant Anxiety(Confirmed) Active Hx of iron deficiency anemia(Confirmed) Active Need for immunization agains t measles(Confirmed) Active Need for varicella vaccine(Confirmed) Active Rubella non-immune status, antepartum(Confirmed) Active Sickle cell trait(Confirmed) Active Vital Signs Most recent to oldest [Reference Range]: 1 Height 163 cm (10/13/20 4:39 PM) Weight 75.5 kg (10/13/20 4:39 PM) Body Mass Index [18.5-24.99] 28.42 *H* (10/13/20 4:39 PM) Blood Pressure [90-138/55-84 mm Hg] 118/ 70mm Hg (10/13/20 4:39 PM) Blood pressure sites Arm, right (10/13/20 4:39 PM) Weight Obtained Via Standing scale (10/13/20 4:39 PM) Social History Social History Type Response Smoking Status Never (less than 100 in lifetime) entered on: 06/24/20 Sex Female
--- OUTSIDE RECORDS SUMMARY | 2023-01-21 23:52 | XMS_ITS | Continuity of Care Document ---
Author Name Unknown Organization [facility] Address [address] [place] [address]- Care Team Providers Care Glove Operator Name Role Phone Lewis BORJA, Kevan Waggoner Primary Care Physician Encounter [facility] [place] Date(s): 09/01/20 - 09/08/20 [facility] [address] [place] [address]- Attending Physician: Quynh Esteban MD Allergies, Adverse Reactions, Alerts Substance Reaction Severity Status NKA Active Immunizations Given and Recorded Vaccine Date Status Refusal Reason tetanus/diphtheria/pertussis, acel(Tdap) 1 08/18/20 Given Influenza Virus Vaccine (oldterm) 05/10/20 Recorde d 1Result Comment: Handled getting vaccine well Medications ferrous gluconate 240 mg oral tablet 1 tablet = 240 mg, By Mouth, Daily, # 90 tablet, 1 Refills, Maintenance, 08/20/20 9:19:00 EDT, [facility] #[id number], Partial fill upon patient request if the [...] Status Health Status Inform ant Anxiety(Confirmed) Active Shortness of breath(Confirmed) Active Hx of iron deficiency anemia(Confirmed) Active Nausea and vomiting in (Confirmed) Active Need for immunization agains t measles(Confirmed) Active Need for varicella vaccine(Confirmed) Active Rubella non-immune status, antepartum(Confirmed) Active Sickle cell trait(Confirmed) Active Vital Signs Most recent to oldest [Reference Range]: 1 Height 163 cm (09/01/20 8:59 AM) Weight 72.1 kg (09/01/20 8:59 AM) Body Mass Index [18.5-24.99] 27.14 *H* (09/01/20 8:59 AM) Blood Pressure [90-138/55-84 mm Hg] 97/5 3mm Hg (09/01/20 8:59 AM) Temperature [96.8-100.4 DegF] 97.0 DegF (09/01/20 8:59 AM) Blood pressure sites Arm, left (09/01/20 8:59 AM) Dry Weight 72.1 kg (09/01/20 8:59 AM) Weight Obtained Via Standing scale (09/01/20 8:59 AM) Dry Weight Obtained Via Standing scale (09/01/20 8:59 AM) Social History Social History Type Response Smoking Status Never (less than 100 in lifetime) entered on: 06/24/20 Sex Female
--- OUTSIDE RECORDS SUMMARY | 2023-01-21 23:52 | XMS_ITS | Continuity of Care Document ---
Author Name Unknown Organization [facility] Address [address] [place] [address]- Care Team Providers Care Biomedical Equipment Support Specialist Name Role Phone Not on Staff, PCP Primary Care Physician Unavail able Encounter [facility] [place] Date(s): 06/20/22 - 07/20/22 [facility] [address] [place] [address]- Allergies, Adverse Reactions, Alerts No Known Allergies Immunizations Given and Recorded Vaccine Date Status Refusal Reason tetanus/diphtheria/pertussis, acel(Tdap) 1 08/18/20 Given Influenza Virus Vaccine (oldterm) 05/10/20 Recorde d Not Given Vaccine Date Status Refusal Reason Measles/Mumps/Rubella Virus Vaccine 10/27/20 Not G iven Patient Refuses 1Result Comment: Handled getting vaccine well Medications Diflucan 150 mg oral tablet 1 tablet = 150 mg, By Mouth, Once, # 1 tablet, 0 Refills, Soft Stop, 06/20/22 14:28:00 EDT, [id number], Partial fill upon patient request if the prescription is for a schedule II opioid drug., 163, cm, 01/31/21 13:27:00 EDT, Height, 66... Start Date: 06/20/22 Status: Ordered Diflucan 150 mg oral tablet 1 tablet = 150 mg, By Mouth, Once, # 1 tablet, 0 Refills, Soft Stop, 09/19/21 11:20:00 EDT, [id number], Partial fill upon patient request if the prescription is for a schedule II opioid drug., 163, cm, 01/31/21 13:27:00 EDT, Height, 66... Start Date: 09/19/21 Status: Ordered Diflucan 150 mg oral tablet 1 tablet = 150 mg, By Mouth, Once, # 1 tablet, 0 Refills, Soft Stop, 05/31/22 17:06:00 EST, [facility]t,[id number], Partial fill upon patient request if the prescription is for a schedule II opioid drug., 163, cm, 01/31/21 13:27:00 EDT, Height, 66... Start Date: 05/31/22 Status: Ordered ferrous sulfate 325 mg oral enteric coated tablet 325 mg, 1, tablet, By Mouth, Daily, Refills 0, Maintenance, 11/12/20 12:18:00 EDT, Partial fill upon patient request if the prescription is for a schedule II opioid drug. Start Date: 11/12/20 Status: Ordered PNV By Mouth, Daily, 0 Refills, Maintenance, 11/12/20 12:18:00 EDT, Partial fill upon patient request if the prescription is for a schedule II opioid drug. Start Date: 11/12/20 Status: Ordered Problem List Condition Confirmation Course Effective Dates Status Health St atus Informant Anxiety Confirmed Active Hx of iron deficiency anemia Confirmed Active Need for immunization against measles Confirmed Active Need for varicella vaccine Confirmed Active Rubella non-immune status, antepartum Confirmed Active Sickle cell trait Confirmed Active Social History Social History Type Response Smoking Status Never (less than 100 in lifetime) entered on: 06/24/20 Sex Patient Care team information Care Team Personnel Name: Not on Staff, PCP Position: S Physician (General Medicine) Member Role: PCP Care Team Related Persons Name: OLIVIA HUSSEIN Address: [address] Address: [address] [place] [address] [place] Name: HUSSEINMICHELLEUL Address: [address] [place] [address] Name: ALIYAH REYES Address: home [address] [place] [address]
--- OUTSIDE RECORDS SUMMARY | 2023-01-21 23:52 | XMS_ITS | Continuity of Care Document ---
Author Name Unknown Organization [facility] Address [address] [place] [address]- Care Team Providers Care Entry Level Chemist Name Role Phone Lewis BORJA, Kevan Waggoner Primary Care Physician [place] [facility] [place] 09/23/20 [facility] [address] [place] [id number] Attending Physician: Milly Aquino Admitting Physician: AdmtrMilly Referring Physician: Admtr, Ar8 Allergies, Adverse Reactions, Alerts Substance Reaction Severity Status NKA Active Immunizations Given and Recorded Vaccine Date Status Refusal Reason tetanus/diphtheria/pertussis, acel(Tdap) 1 08/18/20 Given Influenza Virus Vaccine (oldterm) 05/10/20 Recorde d 1Result Comment: Handled getting vaccine well Medications ferrous gluconate 240 mg oral tablet 1 tablet = 240 mg, By Mouth, Daily, # 90 tablet, 1 Refills, Maintenance, 08/20/20 9:19:00 EDT, [facility]/pharmacy #[id number], Partial fill upon patient request [...] status, antepartum(Confirmed) Active Sickle cell trait(Confirmed) Active Social History Social History Type Response Smoking Status Never (less than 100 in lifetime) entered on: 06/24/20 Sex Female
--- OUTSIDE RECORDS SUMMARY | 2023-01-21 23:52 | XMS_ITS | Continuity of Care Document ---
Author Name Unknown Organization [facility] Address [address] [place] [address]- Care Team Providers Care Wire Spiral Binder Name Role Phone Kevan Saucedo MD Primary Care Physician [place] [facility] [place] Date(s): 09/16/20 - 09/23/20 [facility] [address] [place] [address]- Attending Physician: Bob Magdaleno MD Allergies, Adverse Reactions, Alerts Substance Reaction Severity Status NKA Active Immunizations Given and Recorded Vaccine Date Status Refusal Reason tetanus/diphtheria/pertussis, acel(Tdap) 1 08/18/20 Given Influenza Virus Vaccine (oldterm) 05/10/20 Recorde d 1Result Comment: Handled getting vaccine well Medications ferrous gluconate 240 mg oral tablet 1 tablet = 240 mg, By Mouth, Daily, # 90 tablet, 1 Refills, Maintenance, 08/20/20 9:19:00 EDT, [facility]/pharmacy #[id number], Partial fill upon patient request if the [...] oldest [Reference Range]: 1 Height 163 cm (09/16/20 9:21 AM) Weight 73.4 kg (09/16/20 9:21 AM) Body Mass Index [18.5-24.99] 27.63 *H* (09/16/20 9:21 AM) Blood Pressure [90-138/55-84 mm Hg] 89/6 0mm Hg *L* (09/16/20 9:21 AM) Blood pressure sites Arm, right (09/16/20 9:21 AM) Weight Obtained Via Standing scale (09/16/20 9:21 AM) Social History Social History Type Response Smoking Status Never (less than 100 in lifetime) entered on: 06/24/20 Sex Female
--- OUTSIDE RECORDS SUMMARY | 2023-01-21 23:52 | XMS_ITS | Continuity of Care Document ---
Author Name Unknown Organization [facility] Address [address] [place] [address]- Care Team Providers Care Boning Room Worker Name Role Phone Lewis BORJA, Kevan Waggoner Primary Care Physician Encounter [facility] Date(s): 09/16/20 - 10/29/20 [facility] [address] [place] [address]- Attending Physician: Quynh Esteban MD Allergies, Adverse Reactions, Alerts Substance Reaction Severity Status NKA Active Immunizations Given and Recorded Vaccine Date Status Refusal Reason tetanus/diphtheria/pertussis, acel(Tdap) 1 08/18/20 Given Influenza Virus Vaccine (oldterm) 05/10/20 Recorde d Not Given Vaccine Date Status Refusal Reason Measles/Mumps/Rubella Virus Vaccine 10/27/20 Not G iven Patient Refuses 1Result Comment: Handled getting vaccine well Problem List Condition Effective Dates Status Health [...]
--- OUTSIDE RECORDS SUMMARY | 2023-01-21 23:52 | XMS_ITS | Continuity of Care Document ---
Author Name Unknown Organization [facility] Address [address] [place] [address]- Care Team Providers Care Plate Stacker Hand Name Role Phone Kevan Saucedo MD Primary Care Physician Encounter [facility] [place] Date(s): 09/14/20 - 10/14/20 [facility] [address] [place] [address]- Allergies, Adverse Reactions, Alerts Substance Reaction Severity Status NKA Active Immunizations Given and Recorded Vaccine Date Status Refusal Reason tetanus/diphtheria/pertussis, acel(Tdap) 1 08/18/20 Given Influenza Virus Vaccine (oldterm) 05/10/20 Recorde d 1Result Comment: Handled getting vaccine well Medications acetaminophen-dextromethorphan 160 mg-5 mg/5 mL oral liquid 10 mL, By Mouth, Every 4 hours, # 120 mL, 0 Refills, Maintenance, 10/09/20 12:19:00 EDT, Liquid, [id number], Partial fill upon patient request if the prescription is for a schedule II opioid drug., 10 mL By Mouth Every 4 hours, 163, cm, ... Start Date: 10/09/20 Status: Ordered ferrous gluconate 240 mg oral tablet 1 tablet = 240 mg, By Mouth, Daily, # 90 tablet, 1 Refills, Maintenance, 08/20/20 9:19:00 EDT, [id number], Partial fill upon patient request if the [...]
--- OUTSIDE RECORDS SUMMARY | 2023-01-21 23:52 | XMS_ITS | Continuity of Care Document ---
Author Name Unknown Organization [facility] Address [address] [place] [address]- Care Team Providers Care Business Continuity Specialist Name Role Phone Not on Staff, PCP Primary Care Physician Unavail able [place] [facility] [place] 05/20/21 [facility] [address] [place] [address]- Allergies, Adverse Reactions, Alerts No Known Allergies Immunizations Given and Recorded Vaccine Date Status Refusal Reason tetanus/diphtheria/pertussis, acel(Tdap) 1 08/18/20 Given Influenza Virus Vaccine (oldterm) 05/10/20 Recorde d Not Given Vaccine Date Status Refusal Reason Measles/Mumps/Rubella Virus Vaccine 10/27/20 Not G iven Patient Refuses 1Result Comment: Handled getting vaccine well Medications ferrous sulfate 325 mg oral enteric coated [...] Date: 11/12/20 Status: Ordered Problem List Condition Effective Dates [...]
--- OUTSIDE RECORDS SUMMARY | 2023-01-21 23:52 | XMS_ITS | Continuity of Care Document ---
Author Name Unknown Organization [facility] Address [address] [place] [address]- Care Team Providers Care Hydroelectric Station Chief Name Role Phone Kevan Saucedo MD Primary Care Physician [place] [facility] [place] 01/31/21 - 01/31/[address] [address] Discharge Disposition: A-D/C Home Attending Physician: Quyen Gibson MD Admitting Physician: Quyen Gibson MD Referring Physician: Quyen Gibson MD Allergies, Adverse Reactions, Alerts Substance Reaction [...] oldest [Reference Range]: 1 Height 163 cm (01/31/21 1:27 PM) Weight 66.2 kg (01/31/21 1:20 PM) Oxygen Saturation [94-100 %] 100 % (01/31/21 1:20 PM) Pulse Rate [55-90 bpm] 80 bpm (01/31/21 1:20 PM) Blood Pressure [90-138/55-84 mm Hg] 118/ 74mm Hg (01/31/21 1:20 PM) Respiratory Rate [16-30 br/min] 18 br/mi n (01/31/21 1:20 PM) Temperature [96.8-100.4 DegF] 98.1 DegF (01/31/21 1:20 PM) Mode of Delivery (Oxygen) Room air (01/31/21 1:20 PM) Blood pressure sites Arm, left 1 (01/31/21 1:20 PM) Temperature Route Oral (01/31/21 1:20 PM) Dry Weight 66.2 kg (01/31/21 1:20 PM) Weight Obtained Via Standing scale (01/31/21 1:20 PM) Dry Weight Obtained Via Standing scale (01/31/21 1:20 PM) 1Result Comment: 29cm Social History Social History Type Response Smoking Status Never (less than 100 in lifetime) entered on: 06/24/20 Sex
--- OUTSIDE RECORDS SUMMARY | 2023-01-21 23:52 | XMS_ITS | Continuity of Care Document ---
Author Name Unknown Organization [facility] Address [address] [place] [address]- Care Team Providers Care African History Professor Name Role Phone Lewis BORJA, Kevan Waggoner Primary Care Physician Encounter [facility] Date(s): 09/01/20 - 10/15/20 [facility] [address] [place] [address]- Attending Physician: Quynh Esteban MD Allergies, Adverse [...] Refills, Maintenance, 10/09/20 12:19:00 EDT, [facility], [id number], Partial fill upon patient request if the prescription is for a schedule II opioid drug., 10 mL By Mouth Every 4 hours, 163, cm, ... Start Date: 10/09/20 Status: Ordered ferrous gluconate 240 mg oral tablet 1 tablet = 240 mg, By Mouth, Daily, # 90 tablet, 1 Refills, Maintenance, 08/20/20 9:19:00 EDT, [id number], Partial fill upon patient request if the [...]
--- OUTSIDE RECORDS SUMMARY | 2023-01-21 23:52 | XMS_ITS | Continuity of Care Document ---
Author Name Unknown Organization [facility] Address [address] [place] [address]- Care Team Providers Care Systems Developer Name Role Phone Not on Staff, PCP Primary Care Physician Unavail able Encounter [facility] Date(s): 09/01/22 - 10/01/22 [facility] [address] [place], [place] [address] Attending Physician: Carolynn Garcia MD Allergies, Adverse Reactions, Alerts No Known Allergies [...] Role: PCP Care Team Related Persons Name: HUSSEINOLIVIA Address: [address] Address: [address] [place] [address] Name: JESUS HUSSEIN Address: [address] [place] [address] Name: ALIYAH REYES Address: [address] [place] [address]
--- OUTSIDE RECORDS SUMMARY | 2023-01-21 23:52 | XMS_ITS | Continuity of Care Document ---
Author Name Unknown Organization [facility] Address [address] [place] [address]- Care Team Providers Care Nurse School Name Role Phone Not on Staff, PCP Primary Care Physician Unavail able Encounter [facility] [place] Date(s): 02/14/22 - 03/16/22 [facility] [address] [place] [address]- Allergies, Adverse Reactions, Alerts No Known Allergies [...] Height, 66... Start Date: 09/19/21 Status: Ordered ferrous sulfate 325 mg oral [...] Personnel Name: Not on Staff, PCP Position: [facility] Physician (General Medicine) Member Role: PCP Care Team Related Persons Name: OLIVIA HUSSEIN Address: [address] Address: [address] Name: JESUS HUSSEIN Address: [address] [place] [address] Name: ALIYAH REYES Address: home [address] [place] [address]
--- OUTSIDE RECORDS SUMMARY | 2023-01-21 23:52 | XMS_ITS | Continuity of Care Document ---
Author Name Unknown Organization [facility] Address [address] [place] [address]- Care Team Providers Care Visual Journalist Name Role Phone Lewis BORJA, Kevan Waggoner Primary Care Physician Encounter [facility] Date(s): 07/29/20 - 08/28/[address] [address] Allergies, Adverse Reactions, Alerts Substance Reaction Severity Status NKA Active Immunizations Given and Recorded Vaccine Date Status Refusal Reason tetanus/diphtheria/pertussis, acel(Tdap) 1 08/18/20 Given Influenza Virus Vaccine (oldterm) 05/10/20 Recorde d 1Result Comment: Handled getting vaccine well Medications ferrous gluconate 240 mg oral tablet 1 tablet = 240 mg, By Mouth, Daily, # 90 tablet, 1 Refills, Maintenance, 08/20/20 9:19:00 EDT, [facility]/pharmacy #[id number], Partial fill upon patient request if the [...]
--- OUTSIDE RECORDS SUMMARY | 2023-01-21 23:52 | XMS_ITS | Continuity of Care Document ---
Author Name Unknown Organization [facility] ter Address [address] [place] [address]- Care Team Providers Care High School Foreign Language Teacher Name Role Phone Lewis BORJA, Kevan Waggoner Primary Care Physician [place] [facility] [place](s[place] 10/26/20 - 10/28/[address] [address] Discharge Disposition: A-D/C Home Attending Physician: Mariano BORJA [OB], Marjan Argueta Admitting Physician: Mariano BORJA [OB]Marjan Referring Physician: Mariano BORJA [OB]Marjan Allergies, Adverse Reactions, Alerts Substance Reaction Severity Status NKA Active Immunizations Given and Recorded Vaccine Date Status Refusal Reason tetanus/diphtheria/pertussis, acel(Tdap) 1 08/18/20 Given Influenza Virus Vaccine (oldterm) 05/10/20 Recorde d Not Given Vaccine Date Status Refusal Reason Measles/Mumps/Rubella Virus Vaccine 10/27/20 Not G iven Patient Refuses 1Result Comment: Handled getting vaccine well Medications Acetaminophen Tablet 650 mg, Tablet, By Mouth, Every 4 hours, PRN for Pain , Mild, (1-3), may give 325mg per patient preference and re-dose with 325mg within 4 hours, if needed. Patient should only receive a total of 650mg of Acetaminophen every 4 hours., Routine, 10/26... Start Date: 10/26/20 Stop Date: 10/28/20 Status: Discontinued Ibuprofen Tablet 800 mg, Tablet, By Mouth, Every 8 hours, PRN for Pain , Moderate, (4-6), may give 400mg per patientpreference and re-dose with 400mg within 8 hours if needed. Patient should only receive a total of 800mg of Ibuprofen every 8 hours., Routine, ... Start Date: 10/26/20 Stop Date: 10/28/20 Status: Discontinued Problem List Condition Effective Dates Status Health Status Inform ant Anxiety(Confirmed) Active Hx of iron deficiency anemia(Confirmed) Active Need for immunization agains t measles(Confirmed) Active Need for varicella vaccine(Confirmed) Active Rubella non-immune status, antepartum(Confirmed) Active Sickle cell trait(Confirmed) Active Vital Signs Most recent to oldest [Reference Range]: 1 2 3 Height 163 cm (10/28/20 12:22 AM) 163 cm (10/27/20 3:36 PM) 163 cm (10/27/20 8:23 AM) Weight 77.3 kg (10/26/20 6:39 PM) Oxygen Saturation [94-100 %] 98 % (10/28/20 7:00 AM) 99 % (10/28/20 12:22 AM) 97 % (10/27/20 3:36 PM) Pulse Rate [55-90 bpm] 68 bpm (10/28/20 7:00 AM) 72 bpm (10/28/20 12:22 AM) 81 bpm (10/27/20 3:36 PM) Body Mass Index [18.5-24.99] 29.09 *H* (10/26/20 6:39 PM) Blood Pressure [90-138/55-84 mm Hg] 119/72mm Hg (10/28/20 7:00 AM) 106/64mm Hg (10/28/20 12:22 AM) 113/72mm Hg (10/27/20 3:36 PM) Respiratory Rate [16-30 br/min] 19 br/min (10/28/20 7:07 AM) 19 br/min (10/28/20 7:07 AM) 19 br/min (10/28/20 12:22 AM) Temperature [96.8-100.4 DegF] 97.8 DegF (10/28/20 7:00 AM) 98.8 DegF (10/28/20 12:22 AM) 97.6 DegF (10/27/20 3:36 PM) Mode of Delivery (Oxygen) Room air (10/28/20 7:00 AM) Room air (10/28/20 12:22 AM) Room air (10/27/20 3:36 PM) Blood pressure sites Arm, left (10/28/20 7:00 AM) Arm, left (10/28/20 12:22 AM) Arm, left (10/27/20 3:36 PM) Temperature Route Oral (10/28/20 7:00 AM) Oral (10/28/20 12:22 AM) Oral (10/27/20 3:36 PM) Dry Weight 77.3 kg (10/26/20 6:39 PM) Weight Obtained Via Patient/family state d (10/26/20 6:39 PM) Dry Weight Obtained Via Patient/family s tated (10/26/20 6:39 PM) Social History Social History Type Response Smoking Status Never (less than 100 in lifetime) entered on: 06/24/20 Sex Female
--- OUTSIDE RECORDS SUMMARY | 2023-01-21 23:52 | XMS_ITS | Continuity of Care Document ---
Author Name Unknown Organization [facility] Address [address] [place] [address]- Care Team Providers Care Gardener Florist Name Role Phone Lewis BORJA, Kevan Waggoner Primary Care Physician [place] [facility] [place]s): 10/13/20 - 11/25/20 [facility] [address] [place] [address]- Attending Physician: Quynh Esteban MD Allergies, Adverse [...]
--- OUTSIDE RECORDS SUMMARY | 2023-01-21 23:52 | XMS_ITS | Continuity of Care Document ---
Author Name Unknown Organization [facility] Address [address] [place] [address]- Care Team Providers Care Armored Service Technician Name Role Phone Not on Staff, PCP Primary Care Physician Unavail able Encounter [facility] Date(s): 09/13/21 - 10/29/21 [facility] [address] [place], [place] [address] Attending Physician: Bushra Gomes MD Allergies, Adverse Reactions, Alerts No Known [...]
--- OUTSIDE RECORDS SUMMARY | 2023-01-21 23:52 | XMS_ITS | Continuity of Care Document ---
Author Name Unknown Organization [facility] Address [address] [place] [address]- Care Team Providers Care Tank Car Loader Name Role Phone Not on Staff, PCP Primary Care Physician Unavail able Encounter [facility] Date(s): 10/03/21 - 11/02/21 [facility] [address] [place], [place] [address] Allergies, Adverse Reactions, Alerts No Known Allergies [...]
--- OUTSIDE RECORDS SUMMARY | 2023-01-21 23:52 | XMS_ITS | Continuity of Care Document ---
Author Name Unknown Organization [facility] Address [address] [place] [address]- Care Team Providers Care Cte Teacher Name Role Phone Kevan Saucedo MD Primary Care Physician [place] [facility] [place] 12/06/20 - 01/05/21 [facility] [address] [place] [address]- Attending Physician: Milly Aquino Admitting Physician: Milly Aquino Referring Physician: AdmtrMilly Allergies, Adverse Reactions, Alerts Substance Reaction Severity [...]
--- OUTSIDE RECORDS SUMMARY | 2023-01-21 23:52 | XMS_ITS | Continuity of Care Document ---
Author Name Unknown Organization [facility] Address [address] [place] [address]- Care Team Providers Care Blood Bank Technician Name Role Phone Lewis BORJA, Kevan Waggoner Primary Care Physician [place] [facility] [place] - 07/17/[address] [address]- Allergies, Adverse Reactions, Alerts Substance Reaction Severity Status NKA Active Immunizations Given and Recorded Vaccine Date Status Refusal Reason Influenza Virus Vaccine (oldterm) 05/10/20 Recorde d Medications Multivitamins By Mouth, Daily, 0 Refills, Maintenance, [...] and vomiting in (Confirmed) Active Need for varicella vaccine(Confirmed) Active Rubella non-immune status, antepartum(Confirmed) Active Social History Social History Type Response Smoking Status Never (less than 100 in lifetime) entered on: 06/24/20 Sex Female
--- OUTSIDE RECORDS SUMMARY | 2023-01-21 23:53 | XMS_ITS | Continuity of Care Document ---
Author Name Unknown Organization [facility] Address [address] [place] [address]- Care Team Providers Care Sumac Tanner Name Role Phone Not on Staff, PCP Primary Care Physician Unavail able En[place] [facility] [place] Date(s): 03/07/22 - 04/06/22 [facility] [address] [place] [address]- Allergies, Adverse Reactions, Alerts No Known Allergies [...] Team Related Persons Name: OLIVIA HUSSEIN Address: [address] Address: [address] [place] [address] [place] Name: JESUS HUSSEIN Address: [address] [place] [address] Name: ALIYAH REYES Address: home [address] [place] [address]
--- OUTSIDE RECORDS SUMMARY | 2023-01-21 23:53 | XMS_ITS | Continuity of Care Document ---
Author Name Unknown Organization [facility] Address [address] [facility], [address] [place] [address]- Care Team Providers Care Depilatory Painter Name Role Phone Lewis BORJA, Kevan Waggoner Primary Care Physician Encounter [facility] [place] Date(s): 01/31/21 - 03/02/21 [facility] [address] [facility] [address] [facility], [address]th [place] [address]- Allergies, Adverse Reactions, Alerts Substance Reaction Severity [...]
--- OUTSIDE RECORDS SUMMARY | 2023-01-21 23:53 | XMS_ITS | Continuity of Care Document ---
Author Name Unknown Organization [facility] Address [address] [place] [address]- Care Team Providers Care Cnc Supervisor Name Role Phone Not on Staff, PCP Primary Care Physician Unavail able En[place] [facility] [place] Date(s): 02/16/22 - 03/18/22 [facility] [address] [place] [address]- Allergies, Adverse Reactions, Alerts No Known Allergies [...] Team Related Persons Name: OLIVIA HUSSEIN Address: [address] Address: [address] [place] [address] [place] Name: JESUS HUSSEIN Address: home [address] [place] [address] Name: ALIYAH REYES Address: home [address] [place] [address]
--- OUTSIDE RECORDS SUMMARY | 2023-01-21 23:53 | XMS_ITS | Continuity of Care Document ---
Author Name Unknown Organization [facility] Address [address] [place] [address]- Care Team Providers Care Tin Stacker Name Role Phone Not on Staff, PCP Primary Care Physician Unavail able Encounter [facility] Date(s): 10/25/21 - 11/24/21 [facility] [address] [place], [place] [address] Allergies, Adverse Reactions, Alerts No Known Allergies [...]
--- OUTSIDE RECORDS SUMMARY | 2023-01-21 23:53 | XMS_ITS | Continuity of Care Document ---
Author Name Unknown Organization [facility] ter Address [address] [place] [address]- Care Team Providers Care Naval Aircrewman Mechanical Name Role Phone Kevan Saucedo MD Primary Care Physician [place] [facility] [place] 01/31/21 - 01/31/[address] [address]- Discharge Disposition: Transferred to an intermediate care faci Attending Physician: Rajiv Farias MD Admitting Physician: Rajiv Farias MD Referring Physician: Not on Staff, Referring MD Allergies, Adverse Reactions, Alerts Substance Reaction [...] recent to oldest [Reference Range]: 1 2 Oxygen Saturation [94-100 %] 100 % (01/31/21 11:27 AM) 100 % (01/31/21: AM) Pulse Rate [55-90 bpm] 79 bpm (01/31/21 11:27 AM) 86 bpm (01/31/21: AM) Blood Pressure [90-138/55-84 mm Hg] 138/ 86mm Hg (01/31/21 11: AM) Respiratory Rate [16-30 br/min] 20 br/mi n (01/31/21: AM) Temperature [96.8-100.4 DegF] 98.2 DegF (01/31/21 11: AM) Mode of Delivery (Oxygen) Room air (01/31/21 11:27 AM) Room air (01/31/21: AM) Blood pressure sites Arm, right (01/31/21 11: AM) Temperature Route Oral (01/31/21 11: AM) Social History Social History Type Response Smoking Status Never (less than 100 in lifetime) entered on: 06/24/20 Sex
--- OUTSIDE RECORDS SUMMARY | 2023-01-21 23:53 | XMS_ITS | Continuity of Care Document ---
Author Name Unknown Organization [facility] Address [address] [place] [address]- Care Team Providers Care Wool Sampler Name Role Phone Not on Staff, PCP Primary Care Physician Unavail able En[place] [facility] [place] Date(s): 05/30/22 - 06/29/22 [facility] [address] [place] [address]- Allergies, Adverse Reactions, Alerts No Known Allergies [...] Team Related Persons Name: OLIVIA HUSSEIN Address: [address] Address: [address] [place] [address] [place] Name: HUSSEINMICHELLEUL Address: [address] [place] [address] Name: ALIYAH REYES Address: home [address] [place] [address]
--- OUTSIDE RECORDS SUMMARY | 2023-01-21 23:53 | XMS_ITS | Continuity of Care Document ---
Author Name Unknown Organization [facility] ter Address [address] [place] [address]- Care Team Providers Care Wheel Truing Machine Tender Name Role Phone Kevan Saucedo MD Primary Care Physician [place] [facility] [place] Date(s): 10/25/20 - 10/26/[address] [address] Discharge Disposition: A-D/C Home Attending Physician: Quynh Esteban MD Admitting Physician: Quynh Esteban MD Referring Physician: Quynh Esteban MD Allergies, Adverse Reactions, [...] Refills, Maintenance, 10/09/20 12:19:00 EDT, Liquid, [id number], Partial fill upon patient request if the prescription is for a schedule II opioid drug., 10 mL By Mouth Every 4 hours, 163, cm, ... Start Date: 10/09/20 Status: Ordered ferrous gluconate 240 mg oral tablet 1 tablet = 240 mg, By Mouth, Daily, # 90 tablet, 1 Refills, Maintenance, 08/20/20 9:19:00 EDT, [id number], Partial fill upon patient request if the [...] Most recent to oldest [Reference Range]: 1 Weight 77.5 kg (10/25/20 11:54 PM) Oxygen Saturation [94-100 %] 100 % (10/26/20 12:00 AM) Blood Pressure [90-138/55-84 mm Hg] 128/ 75mm Hg (10/26/20 12:00 AM) Temperature [96.8-100.4 DegF] 98.6 DegF (10/26/20 12:00 AM) Mode of Delivery (Oxygen) Room air (10/26/20 12:00 AM) Blood pressure sites Arm, right (10/26/20 12:00 AM) Temperature Route Oral (10/26/20 12:00 AM) Dry Weight 77.5 kg (10/25/20 11:54 PM) Weight Obtained Via Standing scale (10/25/20 11:54 PM) Social History Social History Type Response Smoking Status Never (less than 100 in lifetime) entered on: 06/24/20 Sex Female
--- OUTSIDE RECORDS SUMMARY | 2023-01-21 23:53 | XMS_ITS | Continuity of Care Document ---
Author Name Unknown Organization [facility] Address [address] [place] [address]- Care Team Providers Care Data Analytics Developer Name Role Phone Lewis BORJA, Kevan Waggoner Primary Care Physician [place] [facility] [place] Date(s): 08/20/20 - 09/23/20 [facility] [address] [place] [id number] Attending Physician: Brenda Messina NP Admitting Physician: Brenda Messina NP Referring Physician: Quynh Esteban MD Allergies, Adverse [...] tablet, 1 Refills, Maintenance, 08/20/20 9:19:00 EDT, [facility] #[id number], Partial fill upon patient request if [...]
--- OUTSIDE RECORDS SUMMARY | 2023-01-21 23:53 | XMS_ITS | Continuity of Care Document ---
Author Name Unknown Organization [facility] Address [address] [place] [address]- Care Team Providers Care Telephone Service Representative Name Role Phone Not on Staff, PCP Primary Care Physician Unavail able Encounter [facility] Date(s): 05/30/22 - 06/29/22 [facility] [address] [place] [address]- Attending Physician: Milly Aquino Admitting Physician: Milly Aquino Referring Physician: AdmtrMilly Allergies, Adverse Reactions, Alerts No Known Allergies [...] 0 Refills, Soft Stop, 05/31/22 17:06:00 EST, Tablet,[facility] #[id number], Partial fill upon patient request [...] 100 in lifetime) entered on: 06/24/20 Sex Note * Event Display: Ultrasound Obstetric, Non-BH Authored Date: * Event Display: Non BH Lab Results Authored Date: * Event Display: Non BH Lab Results Authored Date: * Event Display: Non BH Lab Results Authored Date: * Event Display: Non BH Lab Results Authored Date: * Event Display: Non BH Lab Results Authored Date: * Event Display: Non BH Lab Results Authored Date: * Event Display: Ultrasound Obstetric, Non-BH Authored Date: * Event Display: Ultrasound Obstetric, Non-BH Authored Date: Patient Care team information Care Team Personnel Name: Not on Staff, PCP Position: [facility] Physician (General Medicine) Member Role: PCP Care Team Related Persons Name: OLIVIA HUSSEIN Address: [address] Address: [address] [place] [address] Name: JESUS HUSSEIN Address: [address] [place] [address] Name: ALIYAH ERYES Address: home [address] [place] [address]
--- OUTSIDE RECORDS SUMMARY | 2023-01-21 23:53 | XMS_ITS | Continuity of Care Document ---
Author Name Unknown Organization [facility] Address [address] [place] [address]- Care Team Providers Care Beef Skinner Name Role Phone Not on Staff, PCP Primary Care Physician Unavail able Encounter [facility] Date(s): 09/29/21 - 10/29/21 [facility] [address] [place] [address]- Attending Physician: Milly Aquino Admitting Physician: Milly [...] 0 Refills, Soft Stop, 09/19/21 11:20:00 EDT, Tablet,[facility] #[id number], Partial fill upon patient [...]
--- OUTSIDE RECORDS SUMMARY | 2023-01-21 23:53 | XMS_ITS | Continuity of Care Document ---
Author Name Unknown Organization [facility] Address [address] [place] [address]- Care Team Providers Care Angio Technologist Name Role Phone Lewis BORJA, Kevan Waggoner Primary Care Physician [place] [facility] [place]s): 10/13/20 - 12/03/20 [facility] [address] [place] [address]- Attending Physician: Quynh Esteban MD Allergies, Adverse [...]
--- OUTSIDE RECORDS SUMMARY | 2023-01-21 23:53 | XMS_ITS | Continuity of Care Document ---
Author Name Unknown Organization [facility] Address [address] [place] [address]- Care Team Providers Care Director Toxicology Name Role Phone Not on Staff, PCP Primary Care Physician Unavail able Encounter [facility] Date(s): 10/20/21 - 11/19/21 [facility] [address] [place], [place] [address] Allergies, Adverse Reactions, Alerts No Known [...]
--- OUTSIDE RECORDS SUMMARY | 2023-01-21 23:53 | XMS_ITS | Continuity of Care Document ---
Author Name Unknown Organization [facility] Address [address] [place] [address]- Care Team Providers Care Coffee Sommelier Name Role Phone Lewis BORJA, Kevan Waggoner Primary Care Physician Encounter [facility] [place] Date(s): 10/25/20 - 11/24/20 [facility] [address] [place] [address]- Allergies, Adverse Reactions, Alerts Substance Reaction Severity [...]
--- OUTSIDE RECORDS SUMMARY | 2023-01-21 23:53 | XMS_ITS | Continuity of Care Document ---
Author Name Unknown Organization [facility] Address [address] [place] [address]- Care Team Providers Care Product Management Internship Name Role Phone Lewis BORJA, Kevan Waggoner Primary Care Physician [place] [facility] [place] 10/19/20 - 10/26/20 [facility] [address] [place] [address]- Attending Physician: Erin Manzano MD Allergies, Adverse Reactions, Alerts Substance Reaction [...] Refills, Maintenance, 10/09/20 12:19:00 EDT, Liquid, [id number], Partial fill upon patient request if the prescription is for a schedule II opioid drug., 10 mL By Mouth Every 4 hours, 163, cm, ... Start Date: 10/09/20 Status: Ordered ferrous gluconate 240 mg oral tablet 1 tablet = 240 mg, By Mouth, Daily, # 90 tablet, 1 Refills, Maintenance, 08/20/20 9:19:00 EDT, [id number], Partial fill upon patient request if the [...] oldest [Reference Range]: 1 Height 163 cm (10/19/20 1:07 PM) Weight 77.4 kg (10/19/20 1:07 PM) Body Mass Index [18.5-24.99] 29.13 *H* (10/19/20 1:07 PM) Blood Pressure [90-138/55-84 mm Hg] 112/ 60mm Hg (10/19/20 1:07 PM) Dry Weight 77.4 kg (10/19/20 1:07 PM) Weight Obtained Via Standing scale (10/19/20 1:07 PM) Dry Weight Obtained Via Standing scale (10/19/20 1:07 PM) Social History Social History Type Response Smoking Status Never (less than 100 in lifetime) entered on: 06/24/20 Sex Female
--- OUTSIDE RECORDS SUMMARY | 2023-01-21 23:53 | XMS_ITS | Continuity of Care Document ---
Author Name Unknown Organization [facility] Address [address] [place] [address]- Care Team Providers Care Wreath And Garland Maker Name Role Phone Not on Staff, PCP Primary Care Physician Unavail able [place] [facility] [place] 06/01/22 - 07/01/22 [facility] [address] [place] [address]- Allergies, Adverse Reactions, Alerts No Known Allergies [...] Team Related Persons Name: OLIVIA HUSSEIN Address: [address] Address: [address] [place] [address] [place] Name: HUSSEINMICHELLEUL Address: [address] [place] [address] Name: ALIYAH REYES Address: home [address] [place] [address]
--- OUTSIDE RECORDS SUMMARY | 2023-01-21 23:53 | XMS_ITS | Continuity of Care Document ---
Author Name Unknown Organization [facility] Address [address] [place] [address]- Care Team Providers Care Horticultural Technical Officer Name Role Phone Not on Staff, PCP Primary Care Physician Unavail able En[place] [facility] [place] Date(s): 09/16/21 - 09/23/21 [facility] [address] [place] [address]- Attending Physician: Bob Magdaleno MD Allergies, Adverse Reactions, Alerts No Known [...]
--- OUTSIDE RECORDS SUMMARY | 2023-01-21 23:53 | XMS_ITS | Continuity of Care Document ---
Author Name Unknown Organization [facility] Address [address] [place] [address]- Care Team Providers Care Financial Agent Name Role Phone Lewis BORJA, Kevan Waggoner Primary Care Physician En[place] [facility] [place] Date(s): 11/11/20 - 11/18/20 [facility] [address] [place] [address]- Attending Physician: Carolynn Garcia MD Allergies, Adverse Reactions, Alerts Substance Reaction [...]
--- OUTSIDE RECORDS SUMMARY | 2023-01-21 23:53 | XMS_ITS | Continuity of Care Document ---
Author Name Unknown Organization [facility] Address [address] [place] [address]- Care Team Providers Care System Dispatcher Name Role Phone Not on Staff, PCP Primary Care Physician Unavail able Encounter [facility] Date(s): 09/16/21 - 10/16/21 [facility] [address] [place], [place] [address] Allergies, Adverse Reactions, Alerts No Known [...]
--- OUTSIDE RECORDS SUMMARY | 2023-01-21 23:53 | XMS_ITS | Continuity of Care Document ---
Author Name Unknown Organization [facility] Address [address] [place] [address]- Care Team Providers Care Livestock Rancher Name Role Phone Lewis BORJA, Kevan Waggoner Primary Care Physician En[place] [facility] [place] Date(s): 10/13/20 - 11/17/20 [facility] [address] [place] [address]- Attending Physician: Erin Manzano MD Allergies, Adverse [...]
--- OUTSIDE RECORDS SUMMARY | 2023-01-21 23:53 | XMS_ITS | Continuity of Care Document ---
Author Name Unknown Organization [facility] ter Address [address] [place] [address]- Care Team Providers Care Associate Professor Physician Name Role Phone Lewis BORJA, Kevan Waggoner Primary Care Physician Encounter [facility] Date(s): 10/26/20 - 11/02/[address] [address] Encounter Diagnosis Other uterine inertia(Final) - Discharge Disposition: A-D/C Home Attending Physician: Mariano BORJA [OB]Marjan Admitting Physician: Mariano BORJA [OB], Marjan Argueta Allergies, Adverse Reactions, Alerts Substance Reaction Severity Status NKA Active Immunizations Given and Recorded Vaccine Date Status Refusal Reason tetanus/diphtheria/pertussis, acel(Tdap) 1 08/18/20 Given Influenza Virus Vaccine (oldterm) 05/10/20 Recorde d Not Given Vaccine Date Status Refusal Reason Measles/Mumps/Rubella Virus Vaccine 10/27/20 Not G iven Patient Refuses 1Result Comment: Handled getting vaccine well Medications No Known Medications Problem List Condition Effective Dates Status Health Status Inform ant Anxiety(Confirmed) Active Hx of iron deficiency anemia(Confirmed) Active Need for immunization agains t measles(Confirmed) Active Need for varicella vaccine(Confirmed) Active Rubella non-immune status, antepartum(Confirmed) Active Sickle cell trait(Confirmed) Active Vital Signs Most recent to oldest [Reference Range]: 1 Weight 76.1 kg (10/26/20 10:40 AM) Oxygen Saturation [94-100 %] 100 % (10/26/20 10:40 AM) Blood Pressure [90-138/55-84 mm Hg] 121/ 71mm Hg (10/26/20 10:40 AM) Respiratory Rate [16-30 br/min] 16 br/mi n (10/26/20 10:40 AM) Temperature [96.8-100.4 DegF] 98.6 DegF (10/26/20 10:40 AM) Blood pressure sites Arm, left (10/26/20 10:40 AM) Temperature Route Oral (10/26/20 10:40 AM) Dry Weight 76.1 kg (10/26/20 10:40 AM) Weight Obtained Via Standing scale (10/26/20 10:40 AM) Dry Weight Obtained Via Standing scale (10/26/20 10:40 AM) Social History Social History Type Response Smoking Status Never (less than 100 in lifetime) entered on: 06/24/20 Sex Female
--- OUTSIDE RECORDS SUMMARY | 2023-01-21 23:53 | XMS_ITS | Continuity of Care Document ---
Author Name Unknown Organization [facility] Address [address] [place] [address]- Care Team Providers Care Marine Electrician Name Role Phone Lewis BORJA, Kevan Waggoner Primary Care Physician Encounter [facility] [place] Date(s): 10/26/20 - 11/25/20 [facility] [address] [place] [address]- Allergies, Adverse Reactions, Alerts Substance Reaction Severity [...]
--- OUTSIDE RECORDS SUMMARY | 2023-01-21 23:53 | XMS_ITS | Continuity of Care Document ---
Author Name Unknown Organization [facility] Address [address] [place] [address]- Care Team Providers Care Managed Services Consultant Name Role Phone Not on Staff, PCP Primary Care Physician Unavail able Encounter [facility] Date(s): 09/07/21 - 10/07/21 [facility] [address] [place] [address]- Allergies, Adverse Reactions, Alerts No Known Allergies [...]
--- OUTSIDE RECORDS SUMMARY | 2023-01-21 23:53 | XMS_ITS | Continuity of Care Document ---
Author Name Unknown Organization [facility] Address [address] [place] [address]- Care Team Providers Care Electric Motor Tester Assembler Name Role Phone Lewis BORJA, Kevan Waggoner Primary Care Physician En[facility] [place] Date(s): 07/01/20 - 07/08/20 [facility] [address] [place] [address]- Attending Physician: Quynh Esteban MD Referring Physician: Not on Staff, Referring [...] vaccine(Confirmed) Active Rubella non-immune status, antepartum(Confirmed) Active Vital Signs Most recent to oldest [Reference Range]: 1 Height 163 cm (07/01/20 9:08 AM) Weight 64.3 kg (07/01/20 9:08 AM) Body Mass Index [18.5-24.99] 24.2 (07/01/20 9:08 AM) Blood Pressure [90-138/55-84 mm Hg] 108/ 68mm Hg (07/01/20 9:08 AM) Temperature [96.8-100.4 DegF] 98.1 DegF (07/01/20 9:08 AM) Social History Social History Type Response Smoking Status Never (less than 100 in lifetime) entered on: 06/24/20 Sex Female
--- OUTSIDE RECORDS SUMMARY | 2023-01-21 23:53 | XMS_ITS | Continuity of Care Document ---
Author Name Unknown Organization [facility] Address [address] [place] [address]- Care Team Providers Care Electric Organ Checker Name Role Phone Not on Staff, PCP Primary Care Physician Unavail able Encounter [facility] Date(s): 09/19/21 - 10/19/21 [facility] [address] [place] [address]- Allergies, Adverse Reactions, Alerts No Known Allergies [...]
--- OUTSIDE RECORDS SUMMARY | 2023-01-21 23:53 | XMS_ITS | Continuity of Care Document ---
Author Name Unknown Organization [facility] Address [address] [place] [address]- Care Team Providers Care Cartography Teacher Name Role Phone Lewis BORJA, Kevan Waggoner Primary Care Physician En[place] [facility] [place] [facility] [id number] Date(s): 06/18/20 - 08/12/20 [facility] [address] [place] [address]- Attending Physician: Carolynn Garcia MD Allergies, Adverse [...]
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
--- OUTSIDE RECORDS SUMMARY | 2023-01-21 23:53 | XMS_ITS | Continuity of Care Document ---
Author Name Unknown Organization [facility] Address [address] [place] [address]- Care Team Providers Care Instructor Dramatic Arts Name Role Phone Not on Staff, PCP Primary Care Physician Unavail able [facility] Date(s): 09/13/21 - 10/13/21 [facility] [address] [place], [place] [address] Allergies, Adverse Reactions, Alerts No Known Allergies [...]
--- OUTSIDE RECORDS SUMMARY | 2023-01-21 23:53 | XMS_ITS | Continuity of Care Document ---
Author Name Unknown Organization [facility] Address [address] [place] [address]- Care Team Providers Care Stick Puller Name Role Phone Lewis BORJA, Kevan Waggoner Primary Care Physician [id number] Date(s): 07/28/20 - 08/04/20 [facility] [address] [place] [address]- Attending Physician: Quynh Esteban MD Allergies, Adverse [...] oldest [Reference Range]: 1 Height 163 cm (07/28/20 11:23 AM) Weight 68.1 kg (07/28/20 11:23 AM) Body Mass Index [18.5-24.99] 25.63 *H* (07/28/20 11:23 AM) Blood Pressure [90-138/55-84 mm Hg] 114/ 60mm Hg (07/28/20 11:23 AM) Blood pressure sites Arm, right (07/28/20 11:23 AM) Weight Obtained Via Standing scale (07/28/20 11:23 AM) Social History Social History Type Response Smoking Status Never (less than 100 in lifetime) entered on: 06/24/20 Sex Female
--- OUTSIDE RECORDS SUMMARY | 2023-01-21 23:53 | XMS_ITS | Continuity of Care Document ---
Author Name Unknown Organization [facility] Address [address] [place] [address]- Care Team Providers Care Network Engineering Advisor Name Role Phone Not on Staff, PCP Primary Care Physician Unavail able Encounter [facility] Date(s): 08/16/22 - 09/17/22 [facility] [address] [place] [address]- Attending Physician: Bushra Gomes MD Allergies, Adverse [...] Care Team Related Persons Name: HUSSEINOLIVIA Address: [address] Address: [address] [place] [address] Name: JESUS HUSSEIN Address: [address] [place] [address] Name: ALIYAH REYES Address: [address] [place] [address]
--- OUTSIDE RECORDS SUMMARY | 2023-01-21 23:54 | XMS_ITS | Continuity of Care Document ---
Author Name Unknown Organization [facility] Address [address] [place] [address]- Care Team Providers Care Outside Machinist Helper Name Role Phone Not on Staff, PCP Primary Care Physician Unavail able En[place] [facility] Date(s): 01/05/23 - 01/12/23 [facility] [address] [place] [address] Attending Physician: Not on Staff, Attending MD Referring Physician: Erin Manzano MD Allergies, Adverse Reactions, Alerts No Known [...] 100 in lifetime) entered on: 06/24/20 Sex Radiology * Event Display: PDC Limited Viability * Event Display: PDC Limited Viability Authored Date: [id number] OBSTETRICS REPORT PATIENT INFO: CMRN: [id number] BMRN: [id number] : [birth year] (27 yrs)(F) Name: SANDRA Visit Date: 01/05/2023 02:50 pm KELLIE PERFORMED BY: Performed By: Lilia Lubin RDMS Attending: Fang Orr MD Referred By: Erin Manzano MD Location: [facility] #[id number] INDICATIONS: Date of last menstrual period (LMP) unknown Z78.9 EVALUATION: Num Of Fetuses: 1 Gest. Sac: Seen in the intrauterine cavity Yolk Sac: Not visualized Pole: Not visualized Cardiac Activity: pole not seen Amniotic Fluid FANG FV: Within normal limits BIOMETRY: GS: 3.7 mm G.Age: 4w 5d MING: 09/09/23 GESTATIONAL AGE: Best: 4w 5d Det. By: U/Blane Arguelles MING: 09/09/23 (01/05/23) CERVIX UTERUS ADNEXA: Cervix Appears closed Left Ovary Size(cm) 3.33 x 1.28 x 3.12 Vol(ml): 6.96 Appears normal Right Ovary Size(cm) 1.2 x 1.36 x 3.01 Vol(ml): 2.57 Cyst measuring (cm)= 1.9 x 2.1 x 1.3 Comment Left paraovarian cyst noted measuring 3.0 x 1.2 x 2.0 IMPRESSION: Intrauterine gestational sac consistent with 4 weeks 5 days. Yolk sac and pole were not visualized. RECOMMENDATIONS: Follow up as clinically indicated. Fang Orr MD Electronically Signed Final Report 01/05/2023 04:40 pm * Event Display: PDC Limited Viability Authored Date: Please click on pdf link to open report Patient Care team information Care Team Personnel Name: Not on Staff, PCP Position: S Physician (General Medicine) Member Role: PCP Care Team Related Persons Name: OLIVIA HUSSEIN Address: [id number] Address: [address] Name: JESUS HUSSEIN Address: [address] [place] [address] Name: ALIYAH REYES Address: home [address] [place] [address]
--- OUTSIDE RECORDS SUMMARY | 2023-01-21 23:54 | XMS_ITS | Continuity of Care Document ---
Author Name Unknown Organization [facility] Address [address] [place] [address]- Care Team Providers Care A&P Technician Name Role Phone Not on Staff, PCP Primary Care Physician Unavail able [facility]counter [facility] Date(s): 08/16/22 - 09/15/22 [facility] [address] [place], [place] [address] Allergies, Adverse Reactions, Alerts No Known [...] Team Related Persons Name: OLIVIA HUSSEIN Address: [address] Address: [address] [place] [address] [place] Name: JESUS HUSSEIN Address: [address] [place] [address] Name: ALIYAH REYES Address: home [address] [place] [address]
--- OUTSIDE RECORDS SUMMARY | 2023-01-21 23:54 | XMS_ITS | Continuity of Care Document ---
Author Name Unknown Organization [facility] Address [address] [place] [address]- Care Team Providers Care 3D Modeler Name Role Phone Lewis OBRJA, Kevan Waggoner [id number] 10[facility] - 01/05/21 [facility] [address] [place] [address]- Attending Physician: Quynh Esteban MD Allergies, Adverse [...]
--- OUTSIDE RECORDS SUMMARY | 2023-01-21 23:54 | XMS_ITS | Continuity of Care Document ---
Author Name Unknown Organization [facility] Address [address] [place] [address]- Care Team Providers Care Network Management Specialist Name Role Phone Not on Staff, PCP Primary Care Physician Unavail able Encounter [facility] Date(s): 08/29/21 - 09/28/21 [facility] [address] [place] [address]- Allergies, Adverse Reactions, Alerts No Known Allergies [...]
--- OUTSIDE RECORDS SUMMARY | 2023-01-21 23:54 | XMS_ITS | Continuity of Care Document ---
Author Name Unknown Organization [facility] Address [address] [place] [address]- Care Team Providers Care Conservation Assistant Name Role Phone Not on Staff, PCP Primary Care Physician Unavail able [facility] Date(s): 09/01/22 - 10/01/22 [facility] [address] [place] [address]- Attending Physician: Milly Aquino Admitting Physician: Milly [...] 100 in lifetime) entered on: 06/24/20 Sex Laboratory * Event Display: Non BH Lab Results Authored Date: * Event Display: Non BH Lab Results Authored Date: * Event Display: Non BH Lab Results Authored Date: * Event Display: Non BH Lab Results Authored Date: * Event Display: Non BH Lab Results Authored Date: * Event Display: Non BH Lab Results Authored Date: Radiology * Event Display: Ultrasound Obstetric, Non-BH Authored Date: * Event Display: Ultrasound Obstetric, Non-BH Authored Date: * Event Display: Ultrasound Obstetric, Non-BH Authored Date: Patient Care team information Care Team Personnel Name: Not on Staff, PCP Position: [facility] Physician (General Medicine) Member Role: PCP Care Team Related Persons Name: OLIVIA HUSSEIN Address: [address] Address: [address] [place] [address] Name: JESUS HUSSEIN Address: [address] [place] [address] Name: ALIYAH REYES Address: home [address] [place] [address]
--- OUTSIDE RECORDS SUMMARY | 2023-01-21 23:54 | XMS_ITS | Continuity of Care Document ---
Author Name Unknown Organization [facility] Address [address] [place] [address]- Care Team Providers Care Translator/Interpreter Name Role Phone Lewis BORJA, Kevan Waggoner Primary Care Physician [facility]counter [facility] Date(s): 09/29/20 - 10/29/20 [facility] [address] [place], [place] [address] Allergies, Adverse Reactions, Alerts Substance [...]
--- OUTSIDE RECORDS SUMMARY | 2023-01-21 23:54 | XMS_ITS | Continuity of Care Document ---
Author Name Unknown Organization [facility] Address [address] [place] [address]- Care Team Providers Care Lead Systems Analyst Name Role Phone Lewis BORJA, Kevan Waggoner Primary Care Physician Encounter [facility] Date(s): 08/20/20 - 09/19/20 [facility] [address] [place] [id number] Allergies, Adverse Reactions, Alerts Substance Reaction Severity Status NKA Active Immunizations Given and Recorded Vaccine Date Status Refusal Reason tetanus/diphtheria/pertussis, acel(Tdap) 1 08/18/20 Given Influenza Virus Vaccine (oldterm) 05/10/20 Recorde d 1Result Comment: Handled getting vaccine well Medications ferrous gluconate 240 mg oral tablet 1 tablet = 240 mg, By Mouth, Daily, # 90 tablet, 1 Refills, Maintenance, 08/20/20 9:19:00 EDT, [facility]/pharmacy #[id number], Partial fill upon patient request if the [...]
--- OUTSIDE RECORDS SUMMARY | 2023-01-21 23:54 | XMS_ITS | Continuity of Care Document ---
Author Name Unknown Organization [facility] Address [address] [place] [address]- Care Team Providers Care Saw Repairer Name Role Phone Kevan Saucedo MD Primary Care Physician [facility] [id number] Date(s): 08/18/20 - 08/25/20 [facility] [address] [place] [address]- Attending Physician: Quynh Esteban MD Allergies, Adverse [...] tablet, 1 Refills, Maintenance, 08/20/20 9:19:00 EDT, [facility]/pharmacy #[id number], Partial fill upon patient request if the [...] oldest [Reference Range]: 1 Height 163 cm (08/18/20 10:31 AM) Weight 70.2 kg (08/18/20 10:31 AM) Body Mass Index [18.5-24.99] 26.42 *H* (08/18/20 10:31 AM) Blood Pressure [90-138/55-84 mm Hg] 119/ 60mm Hg (08/18/20 10:31 AM) Temperature [96.8-100.4 DegF] 97.1 DegF (08/18/20 10:31 AM) Blood pressure sites Arm, right (08/18/20 10:31 AM) Dry Weight 70.2 kg (08/18/20 10:31 AM) Weight Obtained Via Standing scale (08/18/20 10:31 AM) Dry Weight Obtained Via Standing scale (08/18/20 10:31 AM) Social History Social History Type Response Smoking Status Never (less than 100 in lifetime) entered on: 06/24/20 Sex Female
--- OUTSIDE RECORDS SUMMARY | 2023-01-21 23:54 | XMS_ITS | Continuity of Care Document ---
Author Name Unknown Organization [facility] Address [address] [place] [address]- Care Team Providers Care Health Information Manager Name Role Phone Lewis BORJA, Kevan Waggoner Primary Care Physician [facility] Date(s): 10/05/20 - 11/04/20 [facility] [address] [place], [place] [address] Allergies, Adverse Reactions, Alerts Substance Reaction [...]
== END 2023-01-22 00:10 | disposition home or self-care (01) ==
PROVIDERS: Physician Assistant; Emergency Provider Emergency Medicine Emergency Medical Services
DX: O03.9 Complete or unspecified spontaneous abortion without complication (principal); Z79.899 Other long term (current) drug therapy
CPT/HCPCS: 36415; 76801; 76817; 80053; 84702; 85025; 86900; 86901; 99284